=== PATIENT | male | born 1995 | race Caucasian/White ===

== ENCOUNTER 2023-09-17 10:46 | Outpatient (AMB) | payer BC, SELFPAY ==
--- NOTE | 2023-09-17 10:53 | A.OFFPC_ITS ---
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 clammy hands. Patient is transfering from [facility]- Dr. Camargo- medical records are scanned into chart. Manager Contracting Required: No Accompanied by: Self / Same As Patient Allergies No Known Allergies Allergy (Verified 09/17/23 11:39) Medication List - Last Reconciled 09/17/23 by CARMEN Hinkle No Known Home Meds Tobacco use date assessed: 09/17/23 Dental Screening Dental Screen Date: 09/17/23 Did you have a dental visit in the last 12 months?: Yes Did you have a dental problem in the last 6 months where you did not have access to dental care?: No Was dental information given to patient?: Patient has dentist HPI HPI Comments History of Present Illness Details 22-year-old male with hypertension, obes ity, benign heart murmur, chronic lumbar back pain with bilateral radiculopathy Surgical hx: Left wrist fx w/ repair Social history: [employer] - retired. Works at [employer]. Health maintenance Tdap 06/05/2022 Echocardiogram 12/25/2019 for heart murmur, no prolapse or abnormalities Specialists [facility] - MRI of lumbar spine without contrast done 04/26/2021: Unremarkable lumbar spine MRI, no evidence of nerve root impingement; treated with injections . Here today to est care CC: sweating a lot, occurs on hands, axilla; mild on forehead. All of the time. This started years ago; worse when in ; cont now even out of service. HTN - was on lisinopril in the past; has been off for 2 months. Monitoring at home. Reports WNL. [facility]al US was never done[facility]; will have eval for hearing and back pain PFSH Medical History (Updated 09/17/23 @ 11:53 by CARMEN Hinkle) Hypertension Surgical History (Updated 09/17/23 @ 11:17 by Ruby Irizarry CMA) History of surgery on left wrist Family History (Updated 09/17/23 @ 11:19 by Ruby Irizarry CMA) Father Hypertension Diabetes Pancreatic cancer Maternal Grandmother Diabetes Social History (Updated 09/17/23 @ 11:04 by Ruby Irizarry CMA) Household Members: Family Housing: House Are you a primary care navigator to a significant other at home: No Do you presently have visiting nurse or other home services: No Alcohol intake: current Alcohol intake frequency: a few times a week Alcohol type: beer Patient Tobacco Use Status: Never used Tobacco e-Cigarette/Vaping Use: Never Used service: Yes (R17) Current occupational status: employed Current occupation: [employer]- [place] Cognitive needs: No Hearing needs: Yes (see[facility]- tinnitus and hearing loss ) Vision needs: No Questionnaire PHQ-9 Over the last 2 weeks, how often have you been bothered by any of the following problems? 1. Little interest or pleasure in doing things: not at all 2. Feeling down, depressed, or hopeless: not at all 3. Trouble falling or staying asleep, or sleeping too much: not at all 4. Feeling tired or having little energy: not at all 5. Poor appetite or overeating: not at all 6. Feeling bad about yourself - or that you are a failure or have let yourself or your family down: not at all 7. Trouble concentrating on things, such as reading the newspaper or watching television: not at all 8. Moving or speaking so slowly that other people could have noticed. Or the opposite - being so fidgety or restless that you have been moving around a lot more than usual: not at all 9. Thoughts that you would be better off or of hurting yourself in some way: not at all Total score: 0 Depression Screening Interpretation: Negative Depression Screening Done: Yes 08343 - PHQ-9 Billing: Yes Source: Developed by Drs. Minor Ugalde, Courtney Alvarado, Dalton Carranza and colleagues, with an educational marshall from [employer]. Thrive Questionnaire Date Thrive assessed: 09/17/23 I am a: Patient What is your living situation today?: I have a steady place to live Within the past 12 months, did the food you bought not last and you didn't have the money to get more?: Never true Within the past 12 months, did you worry whether your food would run out before you got money to buy more?: Never true Do you have trouble paying for medicines?: No Do you have trouble getting transportation to medical appointments?: No Do you have trouble paying your heating and electricity bill?: No Do you have trouble taking care of your child, family member or friend?: No Do you have trouble with day-to-day activities such as bathing, preparing meals, shopping, managing finances, etc.?: No Are you currently unemployed and looking for a job?: No Are you interested in more education?: No Please select the resources that you would like help with: None Currently or been in a relationship where the following occur: no concerns reported THRIVE Score: 0 AUDIT C Alcohol Use Questionnaire (AUDIT-C) 1. How often do you have a drink containing alcohol?: 2-3 times a week 2. How many drinks containing alcohol do you have on a typical day when you are drinking?: 1 or 2 3. How often do you have six or more drinks on one occasion?: Never Total Score: 3 Score Reviewed/Action Taken: Yes TOD-7 AMB Questionnaire TOD-7 Date TOD - 7 assessed: 09/17/23 Feeling nervous, anxious, or on edge: 0 = Not at all Not being able to stop or control worryin = Not at all Worrying too much about different things: 0 = Not at all Trouble relaxin = Not at all Being so restless that it is hard to sit still: 0 = Not at all Becoming easily annoyed or irritable: 0 = Not at all Feeling afraid as if something awful might happen: 0 = Not at all Total TOD-7 score (0-4 normal; 5-9 mild; 10-14 moderate; 15-21 severe): 0 Source: Developed by Drs. Minor Ugalde, Courtney Alvarado, Dalton Carranza and colleagues, with an educational marshall from [employer]. TOD-7 Assessment Billing TOD-7 Assessment Tool: TOD-7 Assessment 08621 Review of Systems Const All systems reviewed & are unremarkable except as noted in HPI and below Physical exam (Primary Care) Vital Signs: Last Vital Signs Pulse 80 09/17/23 10:57 BP 120/66 09/17/23 10:57 Pulse Ox 96 09/17/23 10:57 Oxygen Delivery Method Room Air 09/17/23 10:57 BMI result Body Mass Index 30.5 BMI Assessment/Plan discussion: High BMI High, discussed plan: lifestyle Tobacco/Smoking Status: Tobacco use Status Tobacco use date assessed 09/17/23 09/17/23 11:03 Patient Tobacco Use Status Never used Tobacco 09/17/23 11:04 e-Cigarette/Vaping Use Never Used 09/17/23 11:04 PHQ-9: PHQ-9 Score PHQ-9: Total score 0 09/17/23 11:15 Depression Screening Interpretation: Negative Thrive Assessment: Date of Thrive Assessment Date Thrive assessed 09/17/23 09/17/23 11:06 Currently or been in a relationship where the following occur: no concerns reported Const Other: awake alert NAD MMM RRR, 1/6 systolic murmur LS CTAB + hydrosis noted in bilat axilla w/ stains on shirt & bilat palms Mood and affect appropriate Assessment and Plan Assessment & Plan (1) Hyperhidrosis: Comment: check labs today. If WNL discuss treatment options Tx any abnormal labs Code(s): R61 - Generalized hyperhidrosis (2) History of hypertension: Comment: noted in previous PCP records was on lisinopril 10mg He is now off and BP is at goal He monitors at home, reports < 130/80 Echo UTD 2020 WNL Renal US was ordered but never done (by previous PCP) I do not see an indication to restart or check renal US at this time. Elevated BP was during a time of pain in his back and taking high dose NSAIDS. He is off NSAIDs and while he has pain it is improved Will cont to monitor Code(s): Z86.79 - Personal history of other diseases of the circulatory system (3) Obesity (BMI 30.0-34.9): Comment: Life style mods Code(s): E66.9 - Obesity, unspecified Plan Total time spent caring for the patient today was 45 minutes. This includes time spent before the visit reviewing the chart, time spent during the visit, and time spent after the visit on documentation This note is constructed using voice recognition software. While every effort has been made to ensure accuracy in tree killer, still errors may have been included Sometimes, these errors may affect the content or meaning of the given sentence . Orders: Orders Comprehensive Met. Panel Today R61 - Generalized hyperhidrosis Hemoglobin A1c Today R61 - Generalized hyperhidrosis TSH reflex Free T4 Today R61 - Generalized hyperhidrosis LDL Cholesterol Direct Today R61 - Generalized hyperhidrosis Microalbumin, Random (w Creat) Today R61 - Generalized hyperhidrosis Vitamin D 1,25 dihydroxy Today R61 - Generalized hyperhidrosis Patient Instructions: PLEASE SIGN UP FOR PATIENT PORTAL RTO IN 1-2 WEEKS TO F/U ON LABS RESULTS AND DISCUSS TX PLAN FOR SWEATING. Coding Level of Care Code New Pt Level 4 (32270) Diagnoses Hyperhidrosis R61 History of hypertension Z86.79 Obesity (BMI 30.0-34.9) E66.9 Additional Codes TOD-7 Assessment Billing - TOD-7 Assessment Tool: TOD-7 Assessment 45090 ([id number])
[2023-09-17 10:57] VITALS: BP 120/66; PULSE 80; O2SAT 96; BMI 30.5
== END 2023-09-17 11:49 | disposition home or self-care (01) ==
PROVIDERS: PCP Nurse Practitioner Family; Visit Provider Nurse Practitioner Family
DX: R61 Generalized hyperhidrosis (principal); Z86.79 Personal history of other diseases of the circulatory system; E66.9 Obesity, unspecified; Z68.30 Body mass index [BMI] 30.0-30.9, adult
CPT/HCPCS: 99204

== ENCOUNTER 2023-09-17 11:52 | Outpatient (REF) | payer BC, SELFPAY ==
[2023-09-17 15:10] LABS: Alanine Aminotransferase 39 U/L (0-40); Alkaline Phosphatase 49 U/L (39-117); Anion Gap 12 (12-20); Aspartate Amino Transferase 28 U/L (5-37); Bilirubin Total 0.7 mg/dL (0.0-1.0); Blood Urea Nitrogen 14 mg/dL (9-16); Calcium 9.9 mg/dL (8.4-10.2); Carbon Dioxide 29 mmol/L (22-29); Chloride 104 mmol/L (96-108); Estimated Glomerular Filt Rate > 60; Glucose Random 92 mg/dL (60-115); Potassium 4.2 mmol/L (3.3-5.1); Sodium 141 mmol/L (135-145); TSH reflex Free T4 1.44 uIU/mL (0.32-4.0); Total Protein 8.2 g/dL (6.5-8.0)
[2023-09-17 16:06] LABS: Estimated Average Glucose 111 mg/dL; Hemoglobin A1c % 5.5 % (<6.0)
[2023-09-17 16:10] LABS: Creatinine Urine 94.41 mg/dL; Microalbum/Creatinine Ratio Ur 6.3 ug/mg cr (<30)
[2023-09-18 14:39] LABS: LDL Cholesterol Direct 146 mg/dL (<100)
[2023-09-22 00:14] LABS: VITAMIN D (1,25 OH) D3 69 pg/mL; Vit D (1,25-Dihydroxy) Total 69 pg/mL (18-72); Vitamin D (1,25 OH) D2 <8 pg/mL
== END 2023-09-17 11:53 | disposition home or self-care (01) ==
LOC: HO.WFDLDS 11:52
PROVIDERS: Visit Provider Nurse Practitioner Family
DX: R61 Generalized hyperhidrosis (principal)
CPT/HCPCS: 36415; 80053; 82043; 82570; 82652; 83036; 83721; 84443

== ENCOUNTER 2023-10-09 08:13 | Outpatient (AMB) | payer BC, SELFPAY ==
--- NOTE | 2023-10-09 08:15 | A.OFFPC_ITS ---
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 Required: No Allergies No Known Allergies Allergy (Verified 10/09/23 08:18) Medication List - Last Reconciled 10/09/23 by CARMEN Hinkle No Known Home Meds Tobacco use date assessed: 09/17/23 Dental Screening Dental Screen Date: 09/17/23 HPI HPI Comments History of Present Illness Details 28-year-old male with hypertension, obes ity, benign heart murmur, chronic lumbar back pain with bilateral radiculopathy Surgical hx: Left wrist fx w/ repair 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 Here side of follow up on labs and discuss treatment for hyperhidrosis. 09/17/2023 normal CMP, TSH, normal hemog lobin A1c of 5.5%, normal here in microalbumin creatinine ratio, LDL 146, Vit d WNL His blood pressure was elevated upon initial intake using the automatic blood pressure cuff. Recheck shows a normal blood pressure. He continues to have back pain. He has not taken any NSAIDs today. He complains photosensitivity to bilat eyes present for several years. Last eye exam 2017. Denies constitutional symptoms related to this [facility] Medical History (Updated 10/09/23 @ 08:58 by LIBAN Hinkle-SUNITA) Hypertension Surgical History (Updated 09/17/23 @ 11:17 by Ruby Irizarry [facility]) History of surgery on left wrist Family History (Updated 09/17/23 @ 11:19 by Ruby Irizarry CMA) Father Hypertension Diabetes Pancreatic cancer Maternal Grandmother Diabetes Social History (Updated 09/17/23 @ 11:04 by Ruby Irizarry CMA) Household Members: Family Both parents involved: No Caregiver staying overnight: No Housing: House Are you a primary animal caregiver to a significant other at home: No Do you presently have visiting nurse or other home services: No 75 years or older and lives alone: No Alcohol intake: current Alcohol intake frequency: a few times a week Alcohol type: beer Patient Tobacco Use Status: Never used Tobacco e-Cigarette/Vaping Use: Never Used service: Yes ([employer]) Current occupational status: employed 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 Minor Ugalde, Courtney Alvarado, Dalton Carranza and colleagues, with an educational marshall from [employer]. Review of Systems Const All systems reviewed & are unremarkable except as noted in HPI and below Physical exam (Primary Care) Vital Signs: Last Vital Signs Temp 97.7 F 10/09/23 08:17 Pulse 50 10/09/23 08:17 Resp 16 10/09/23 08:17 BP 144/84 H 10/09/23 08:24 Pulse Ox 98 10/09/23 08:17 Oxygen Delivery Method Room Air 10/09/23 08:17 BMI result Body Mass Index 29.9 Tobacco/Smoking Status: Tobacco use Status Tobacco use date assessed 09/17/23 10/09/23 08:17 Patient Tobacco Use Status Never used Tobacco 10/09/23 08:17 e-Cigarette/Vaping Use Never Used 10/09/23 08:17 Thrive Assessment: Date of Thrive Assessment Date Thrive assessed 09/17/23 10/09/23 08:17 Const Other: awake alert NAD MMM RRR, 1/6 systolic murmur LS CTAB + hydrosis noted in bilat axilla w/ stains on shirt & bilat palms Mood and affect appropriate Assessment and Plan Assessment & Plan (1) Photosensitivity: Comment: Refer to ophthalmology Code(s): L56.8 - Other specified acute skin changes due to ultraviolet radiation (2) Hyperhidrosis: Comment: Labs within normal limits. Start Drysol 20% solution as directed. Advised a side effect of skin irritation and how to combat this. If this does not work I have asked for him to notify me and at that time we can refer to Dermatology for treatment such as Botox. Code(s): R61 - Generalized hyperhidrosis (3) Chronic back pain: Comment: Present for years. Taking NSAIDs to treat. Advised against taking NSAIDs due to the elevated blood pressure when he does take this. Advised to take a 1000 mg of Tylenol 3 times a day, not to exceed this dose. Take at least 2000 mg per day every day given the chronicity of his back pain. [facility] and [facility]. Code(s): M54.9 - Dorsalgia, unspecified; G89.29 - Other chronic pain Qualifiers: Back pain location: low back pain Back pain laterality: midline Sciatica presence: without sciatica Qualified Code(s): M54.50 - Low back pain, unspecified; G89.29 - Other chronic pain Plan This note is constructed using voice recognition software. While every effort has been made to ensure accuracy in pain coordinator, still errors may have been included Sometimes, these errors may affect the content or meaning of the given sentence . Total time spent caring for the patient today was 30 minutes. This includes time spent before the visit reviewing the chart, time spent during the visit, and time spent after the visit on documentation Orders: Referrals Ophthalmology Referral L56.8 - Other specified acute skin changes due to ultraviolet radiation Medications: New aluminum chloride 20% 1 appl topical BEDTIME 3 days 60 mL 5RF Patient Instructions: [facility] [place] [address] [place] [address] Please call and schedule appt . Try taking Tylenol 1000mg three times per day, avoid NSAID (Aleve, Motrin, etc). Return to office in the fall for a complete physical exam, sooner as needed. Coding Level of Care Code Est Pt Level 4 (00497) Diagnoses Photosensitivity L56.8 Hyperhidrosis R61 Chronic midline low back pain without sciatica M54.50; G89.29 Back pain location: low back pain Back pain laterality: midline Sciatica presence: without sciatica
[2023-10-09 08:17] VITALS: BP 150/90; PULSE 50; RESP 16; TEMP 36.5; O2SAT 98; BMI 29.9
[2023-10-09 08:24] VITALS: BP 144/84
[2023-10-09 08:48] VITALS: BP 128/78
== END 2023-10-09 09:04 | disposition home or self-care (01) ==
PROVIDERS: PCP Nurse Practitioner Family; Visit Provider Nurse Practitioner Family
DX: L56.8 Other specified acute skin changes due to ultraviolet radiation (principal); R61 Generalized hyperhidrosis; M54.50 Low back pain, unspecified; G89.29 Other chronic pain
CPT/HCPCS: 99214

== ENCOUNTER 2024-03-28 08:11 | Outpatient (AMB) | payer BC, SELFPAY ==
--- NOTE | 2024-03-28 07:28 | MHC.PC.OV ---
Vital Signs 03/28/24 08:16 03/28/24 11:48 Height 6 ft Weight 230 lb 8 oz BMI 31.3 BP 154/82 H 158/88 H Blood Pressure Location Lt brachial Rt brachial Position Sitting Sitting Respiration 15 Pulse 100 Pulse Source Pulse Oximeter Pulse Oximetry (%) 99 Oxygen Delivery Method Room Air Intake Visit Reasons: Fall for CPE with me Intake Note: annual physical Allergies No Known Allergies Allergy (Verified 03/28/24 08:45) Medication List - Last Reconciled 03/28/24 by LIBAN [facility] Tobacco use date assessed: 03/28/24 Dental Screening Dental Screen Date: 03/28/24 Did you have a dental visit in the last 12 months?: No Did you have a dental problem in the last 6 months where you did not have access to dental care?: No Was dental information given to patient?: Patient has dentist HPI HPI Comments History of Present Illness Details 29-year-old male with hypertension, obesity, benign heart murmur, chronic lumbar back pain with bilateral radiculopathy, hyperhydrosis Family hx: as below, no changes Surgical hx: Left wrist fx w/ repair Social history: [employer] 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 Specialists [facility] - MRI of lumbar spine without contrast done 04/26/2021: Unremarkable lumbar spine MRI, no evidence of nerve root impingement; treated with injections . Optho Here today for CPE Drysol did not work. Interested in Derm referral Optho - cont w/ photophobia. did not schedule eye exam, too busy, will work on that. Mood is feeling stressed. Not sleeping as a result. Can fall asleep but not stay sleep. High level of anxiety. Denies SI/HI. Denies negative coping like etoh or drugs. + support system. Looking for another job Appetite: eat when i can d/t schedule. Some times its take out. Some times only eats once per day Not exercising like he used to d/t time. Plan Check BP and P at home daily for 2 weeks. Goal is <140 DBP< 90 Send me the log via the portal Also let me know how the trazodone is working for insomnia and anxiety. Can adjust and titrate to effect Derm referral Schedule Eye exam Repeat screening labs today. RTO 1 year, CPE, sooner PRN PFSH Medical History (Updated 03/28/24 @ 11:49 by Tiffany Kowalski [facility]) Hypertension Surgical History (Updated 09/17/23 @ 11:17 by Ruby Irizarry CMA) History of surgery on left wrist Family History (Updated 09/17/23 @ 11:19 by Ruby Irizarry CMA) Father Hypertension Diabetes Pancreatic cancer Maternal Grandmother Diabetes Social History (Updated 09/17/23 @ 11:04 by Ruby Irizarry CMA) Household Members: Family Both parents involved: No Caregiver staying overnight: No Housing: House Are you a primary direct care professional to a significant other at home: No Do you presently have visiting nurse or other home services: No 75 years or older and lives alone: No Alcohol intake: current Alcohol intake frequency: a few times a week Alcohol type: beer Patient Tobacco Use Status: Never used Tobacco e-Cigarette/Vaping Use: Never Used service: Yes ([employer]) Current occupational status: employed 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 34584 - PHQ-9 Billing: Patient declined-do not bill Source: Developed by Drs. Minor Ugalde, Courtney Alvarado, Dalton Carranza and colleagues, with an educational marshall from [employer]. Thrive Questionnaire Date Thrive assessed: 03/28/24 I am a: Patient What is your living situation today?: I have a steady place to live Within the past 12 months, did the food you bought not last and you didn't have the money to get more?: Never true Within the past 12 months, did you worry whether your food would run out before you got money to buy more?: Never true Do you have trouble paying for medicines?: No Do you have trouble getting transportation to medical appointments?: No Do you have trouble paying your heating and electricity bill?: No Do you have trouble taking care of your child, family member or friend?: No Do you have trouble with day-to-day activities such as bathing, preparing meals, shopping, managing finances, etc.?: No Are you currently unemployed and looking for a job?: No Are you interested in more education?: I choose not to answer this question Please select the resources that you would like help with: None THRIVE Score: 0 AUDIT C Alcohol Use Questionnaire (AUDIT-C) 1. How often do you have a drink containing alcohol?: 2-4 times a month 2. How many drinks containing alcohol do you have on a typical day when you are drinking?: 3 or 4 3. How often do you have six or more drinks on one occasion?: Less than monthly Total Score: 4 TOD-7 AMB Questionnaire TOD-7 Date TOD - 7 assessed: 03/28/24 Feeling nervous, anxious, or on edge: 3 = Nearly every day Not being able to stop or control worryin = Nearly every day Worrying too much about different things: 3 = Nearly every day Trouble relaxin = Nearly every day Being so restless that it is hard to sit still: 3 = Nearly every day Becoming easily annoyed or irritable: 3 = Nearly every day Feeling afraid as if something awful might happen: 0 = Not at all Total TOD-7 score (0-4 normal; 5-9 mild; 10-14 moderate; 15-21 severe): 18 Source: Developed by Drs. Minor Ugalde, Courtney Alvarado, Dalton Carranza and colleagues, with an educational marshall from [employer]. TOD-7 Assessment Billing TOD-7 Assessment Tool: TOD-7 Assessment 69954 Physical exam (Primary Care) Vital Signs: Last Vital Signs Pulse 100 03/28/24 08:16 Resp 15 03/28/24 08:16 BP 154/82 H 03/28/24 08:16 Pulse Ox 99 03/28/24 08:16 Oxygen Delivery Method Room Air 03/28/24 08:16 BMI result Body Mass Index 31.3 Tobacco/Smoking Status: Tobacco use Status Tobacco use date assessed 03/28/24 03/28/24 08:18 Patient Tobacco Use Status Never used Tobacco 03/28/24 07:28 e-Cigarette/Vaping Use Never Used 03/28/24 07:28 Thrive Assessment: Date of Thrive Assessment Date Thrive assessed 03/28/24 03/28/24 08:18 Const Other: awake alert NAD PERRLA, EOMI TM intact and clear bilat Nares WNL Neck FROM, no thyromegaly MMM RRR, 1/6 systolic murmur LS CTAB Abd soft, nontender, normoactive bs x 4 CUEVAS x 4, normal pulses Skin intact + hydrosis noted in bilat axilla w/ stains on shirt & bilat palms Mood and affect appropriate Coding Level of Care Code Est Pt Prev Care 18-39y(72095) Diagnoses Encounter for general adult medical examination without abnormal findings Z00.00 Hyperhidrosis R61 History of hypertension Z86.79 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 (3) History of hypertension: Comment: noted in previous PCP records was on lisinopril 10mg He is now off and BP is at goal He monitors at home, reports < 130/80 Echo UTD 2020 WNL Renal US was ordered but never done (by previous PCP) I do not see an indication to restart or check renal US at this time. Elevated BP was during a time of pain in his back and taking high dose NSAIDS. He is off NSAIDs and while he has pain it is improved BP elevated again today. See plan above Code(s): Z86.79 - Personal history of other diseases of the circulatory system Category: Medical Plan: . (4) Insomnia secondary to anxiety: Code(s): F41.9 - Anxiety disorder, unspecified; F51.05 - Insomnia due to other mental disorder Category: Medical (5) Obesity (BMI 30.0-34.9): Comment: Life style mods Code(s): E66.9 - Obesity, unspecified Category: Medical (6) Photosensitivity: Comment: Refer to ophthalmology Code(s): L56.8 - Other specified acute skin changes due to ultraviolet radiation Category: Medical Plan . Orders: Orders Lipid Panel Today R61 - Generalized hyperhidrosis, Z00.00 - Encounter for general adult medical examination without abnormal findings Comprehensive [place]. Panel Fast Today R61 - Generalized hyperhidrosis, Z00.00 - Encounter for general adult medical examination without abnormal findings Referrals Dermatology Referral R61 - Generalized hyperhidrosis Medications: New trazodone take 1/2 to 1 tab 30 min before bed as needed for sleep 50 mg PO BEDTIME PRN 30 tabs 2RF sleep
[2024-03-28 08:16] VITALS: BP 154/82; PULSE 100; RESP 15; O2SAT 99; BMI 31.3
[2024-03-28 11:48] VITALS: BP 158/88
== END 2024-03-28 09:06 | disposition home or self-care (01) ==
PROVIDERS: PCP Nurse Practitioner Family; Visit Provider Nurse Practitioner Family
DX: Z00.00 Encounter for general adult medical examination without abnormal findings (principal); R61 Generalized hyperhidrosis; Z86.79 Personal history of other diseases of the circulatory system; Z68.31 Body mass index [BMI] 31.0-31.9, adult; E66.9 Obesity, unspecified; F41.9 Anxiety disorder, unspecified; F51.05 Insomnia due to other mental disorder; L56.8 Other specified acute skin changes due to ultraviolet radiation

== ENCOUNTER → 2024-03-28 08:11 | Outpatient (BNVA) | payer BC, SELFPAY | PROVIDERS: PCP Nurse Practitioner Family; Visit Provider Nurse Practitioner Family | DX: Z00.00 Encounter for general adult medical examination without abnormal findings (principal); R61 Generalized hyperhidrosis; F41.9 Anxiety disorder, unspecified; F51.05 Insomnia due to other mental disorder; L56.8 Other specified acute skin changes due to ultraviolet radiation; E66.9 Obesity, unspecified; Z68.31 Body mass index [BMI] 31.0-31.9, adult; Z86.79 Personal history of other diseases of the circulatory system | CPT/HCPCS: 96127 ==

== ENCOUNTER 2024-04-21 10:39 | Outpatient (REF) | payer BC, SELFPAY ==
[2024-04-21 14:39] LABS: Alanine Aminotransferase 56 U/L (0-40); Albumin Level 4.7 g/dL (3.5-5.0); Alkaline Phosphatase 46 U/L (39-117); Anion Gap 11 (12-20); Aspartate Amino Transferase 39 U/L (5-37); Bilirubin Total 0.5 mg/dL (0.0-1.0); Blood Urea Nitrogen 13 mg/dL (9-16); Calcium 10.5 mg/dL (8.4-10.2); Carbon Dioxide 29 mmol/L (22-29); Chloride 102 mmol/L (96-108); Cholesterol 208 mg/dL (<200); Estimated Glomerular Filt Rate > 60; Glucose Fasting 98 mg/dL (60-99); HDL Cholesterol 46 mg/dL (>40); LDL Cholesterol Calculated 130 mg/dL (<100); Sodium 138 mmol/L (135-145); Total Protein 7.6 g/dL (6.5-8.0); Triglycerides 160 mg/dL (<150)
== END 2024-04-21 10:40 | disposition home or self-care (01) ==
LOC: HO.WFDLDS 10:39
PROVIDERS: Visit Provider Nurse Practitioner Family
DX: Z00.00 Encounter for general adult medical examination without abnormal findings (principal); R61 Generalized hyperhidrosis
CPT/HCPCS: 36415; 80053; 80061

== ENCOUNTER 2024-05-04 11:05 | Outpatient (AMB) | payer BC, SELFPAY ==
--- NOTE | 2024-05-04 11:21 | MHC.PC.OV ---
Vital Signs 05/04/24 11:25 Height 6 ft Weight 229 lb BMI 31.1 BP 145/91 H Blood Pressure Location Rt brachial Position Sitting Respiration 14 Pulse 63 Pulse Source Pulse Oximeter Pulse Oximetry (%) 99 Oxygen Delivery Method Room Air Intake Visit Reasons: DISCHARGE/ BACK SPASM UNABLE TO WALK Intake Note: follow up on discharge from ER for back spasm and painful when walking x3 days Net Developer Architect Required: No Allergies No Known Allergies Allergy (Verified 05/04/24 11:24) Medication List - Last Reconciled 05/04/24 by Tiffany Kowalski, ASSIST[employer]CH[employer]- cyclobenzaprine 10 mg PO TID methylprednisolone 4 mg PO DAILY trazodone 50 mg PO BEDTIME PRN Tobacco use date assessed: 03/28/24 Dental Screening Dental Screen Date: 03/28/24 HPI HPI Comments History of Present Illness Details 29-year-old male with hypertension, obesity, benign heart murmur, chronic lumbar back pain with bilateral radiculopathy, hyperhydrosis Surgical hx: Left wrist fx w/ repair Social history: [employer] Health maintenance Tdap 06/05/2022 Echocardiogram 12/25/2019 12 for heart murmur, no prolapse or abnormalities Renal ultrasound ordered July of 2022 * no results Specialists [facility] - MRI of lumbar spine without contrast done 04/26/2021: Unremarkable lumbar spine MRI, no evidence of nerve root impingement; treated with injections . Optho History of Present Illness Here today for hospital discharge follow up. Was seen at [facility] on 05/01/2024 for acute on chronic lumbar back pain. The pain began on the afternoon of May 01, when the patient bent over to grab laundry. Immediately following this action, he experienced a shooting pain running directly down the middle of his back, resulting in a loss of leg stability. The patient was unable to stand or move for 1 hour, he did require assistance from his mother to get up and required assistance to reach the emergency department (ED) on the same day. Diagnostic imaging at the ED included a CT scan, which showed no lumbar spine fracture or other acute abnormalities. Comparisons were made with an MRI from April 2021, confirming the absence of any new acute pathology. The patient was prescribed a Medrol dose pack and cyclobenzaprine for pain management. He noted some improvement, but continues to experience limitation in bending and describes his lower waist as feeling like a rubber band, with unpredictable leg stability. He denies any saddle paresthesia, loss of bowel or bladder function. Physical Exam General: Awake, alert. No apparent distress PERRLA, EOMI, Neck FROM Spinal tenderness starting at lower thoracic level extending through sacrum, mild tenderness paraspinally in lower back region. + SLR bilat R>L Normal strength, tone, reflexes Gaurded movement/position change d/t pain Results - CT Scan: No lumbar spine fracture; no acute abnormalities. Compared with prior MRI from April 2021. Plan - Acute Lumbar Back Pain: Request approval for an updated MRI to evaluate current spinal condition. Referral to [facility] spine group for specialist assessment once imaging is available. - Prescribe work restrictions: No prolonged sitting, standing, bending, squatting, or lifting over 5 pounds. Monitor symptoms closely and adjust restrictions as needed. - Continue current medications: Extend prescription for Medrol dose pack and cyclobenzaprine to control pain and inflammation until MRI results are available. Patient was informed and verbally consented to the use of an ambient scribe for clinic note documentation during this visit. Discussion Notes During our discussion, the patient expressed concern regarding his ability to continue working safely. I recommended extending his medication regimen, as current prescriptions demonstrate partial efficacy in managing symptoms. I outlined the potential need for an updated MRI to gain insight into his spinal condition and explained that pending MRI results will guide any further intervention or referral to a counterintelligence specialist. We discussed the importance of work restrictions and their role in preventing further injury. The patient agreed to these plans, understanding the necessity of rest and avoidance of strenuous activity. Patient Instructions - Adhere to prescribed work restrictions: Avoid prolonged sitting, standing, bending, squatting, and lifting over 5 pounds. - Continue Medrol dose pack and cyclobenzaprine as prescribed. - Monitor symptoms and contact the clinic if there is a significant increase in pain or any new symptoms. - Await contact from the MRI department for scheduling. - Follow up with specialist as referred once MRI results are available. - Use provided pharmacy, [facility] in [place], for medication refills. FU with provider once MRI results are back and for return to work clearance This note is constructed using voice recognition software. 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 Total time spent caring for the patient today was 45 minutes. This includes time spent before the visit reviewing the chart, time spent during the visit, and time spent after the visit on documentation [facility] Medical History (Updated 05/04/24 @ 12:12 by Tiffany Kowalski [facility]) Hypertension Surgical History (Updated 09/17/23 @ 11:17 by Ruby Irizarry CMA) History of surgery on left wrist Family History (Updated 09/17/23 @ 11:19 by Ruby Irizarry CMA) Father Hypertension Diabetes Pancreatic cancer Maternal Grandmother Diabetes Social History (Updated 09/17/23 @ 11:04 by Ruby Irizarry CMA) Household Members: Family Both parents involved: No Caregiver staying overnight: No Housing: House Are you a primary patient care nursing assistant to a significant other at home: No Do you presently have visiting nurse or other home services: No 75 years or older and lives alone: No Alcohol intake: current Alcohol intake frequency: a few times a week Alcohol type: beer Patient Tobacco Use Status: Never used Tobacco e-Cigarette/Vaping Use: Never Used service: Yes ([employer]) Current occupational status: employed 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 07456 - PHQ-9 Billing: Patient declined-do not bill Source: Developed by Drs. Minor Ugalde, Courtney Alvarado, Dalton Carranza and colleagues, with an educational marshall from [employer]. Thrive Questionnaire Date Thrive assessed: 05/04/24 I am a: Patient What is your living situation today?: I have a steady place to live Within the past 12 months, did the food you bought not last and you didn't have the money to get more?: Never true Within the past 12 months, did you worry whether your food would run out before you got money to buy more?: Never true Do you have trouble paying for medicines?: No Do you have trouble getting transportation to medical appointments?: No Do you have trouble paying your heating and electricity bill?: No Do you have trouble taking care of your child, family member or friend?: No Do you have trouble with day-to-day activities such as bathing, preparing meals, shopping, managing finances, etc.?: No Are you currently unemployed and looking for a job?: No Are you interested in more education?: I choose not to answer this question Please select the resources that you would like help with: None Currently or been in a relationship where the following occur: No concerns reported THRIVE Score: 0 TOD-7 AMB Questionnaire TOD-7 Date TOD - 7 assessed: 03/28/24 Source: Developed by Drs. Minor Ugalde, Courtney Alvarado, Dalton Carranza and colleagues, with an educational marshall from [employer]. Physical exam (Primary Care) Vital Signs: Last Vital Signs Pulse 63 05/04/24 11:25 Resp 14 05/04/24 11:25 BP 145/91 H 05/04/24 11:25 Pulse Ox 99 05/04/24 11:25 Oxygen Delivery Method Room Air 05/04/24 11:25 BMI result Body Mass Index 31.1 Tobacco/Smoking Status: Tobacco use Status Tobacco use date assessed 03/28/24 05/04/24 11:27 Patient Tobacco Use Status Never used Tobacco 05/04/24 11:27 e-Cigarette/Vaping Use Never Used 05/04/24 11:27 Thrive Assessment: Date of Thrive Assessment Date Thrive assessed 05/04/24 05/04/24 11:27 Currently or been in a relationship where the following occur: No concerns reported Coding Level of Care Code Est Pt Level 5 (98553) Complex EM visit Add On G2211 Diagnoses Hospital discharge follow-up Z09 Low back pain radiating to both legs M54.50; M79.604; M79.605 Assessment & Plan Assessment & Plan (1) Hospital discharge follow-up: Code(s): Z09 - Encounter for follow-up examination after completed treatment for conditions other than malignant neoplasm Category: Medical (2) Low back pain radiating to both legs: Code(s): M54.50 - Low back pain, unspecified; M79.604 - Pain in right leg; M79.605 - Pain in left leg Category: Medical Plan . Orders: Orders MR lumbar spine wo con Today M54.50 - Low back pain, unspecified, M79.604 - Pain in right leg, M79.605 - Pain in left leg Referrals Neuro Spine Referral M54.50 - Low back pain, unspecified, M79.604 - Pain in right leg, M79.605 - Pain in left leg Medications: New methylprednisolone (Medrol (Jony)) PO PER PKG DIR 21 ea 0RF cyclobenzaprine 10 mg PO TID 15 tabs 0RF
[2024-05-04 11:25] VITALS: BP 145/91; PULSE 63; RESP 14; O2SAT 99; BMI 31.1
--- OUTSIDE RECORDS SUMMARY | 2024-05-10 18:00 | XMS_ITS | Continuity of Care Document ---
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 Harrington Primary Care Physician [facility] [id number] Date(s): 05/01/24 - 05/01/[address] [address]- Discharge Disposition: A-D/C Home Attending Physician: Williams Eaton DO Admitting Physician: Williams Eaton DO Referring Physician: Not on Staff, Referring MD Encounter Type: Disch ES Allergies, Adverse Reactions, Alerts No Known Allergies Immunizations Given and Recorded Vaccine Date Status Refusal Reason tetanus/diphtheria/pertussis, acel(Tdap) 06/05/22 Recorded tetanus/diphtheria/pertussis, acel(Tdap) 02/15/16 Recorded tetanus/diphtheria/pertussis, acel(Tdap) 12/06/07 Given SARS-CoV-2 (COVID-19) mRNA BNT-162b2 vac 03/01/21 Recorded influenza virus vaccine, inactivated 02/18/21 Cam rded Hepatitis B Vaccine (old term) 09/01/16 Recorded Hepatitis B Vaccine (old term) 03/31/16 Recorded Hepatitis B Vaccine (old term) 02/20/16 Recorded Hepatitis B Vaccine (old term) 96 Given Hepatitis B Vaccine (old term) 96 Given Hepatitis B Vaccine (old term) 96 Given Hepatitis A Pediatric Vaccine 1 12/10/12 Given Hepatitis A Pediatric Vaccine 2 12/18/11 Given Meningococcal Conjugate Vaccine 3 12/10/12 Given Meningococcal Conjugate Vaccine 12/06/07 Given Human Papillomavirus Vaccine 4 07/31/12 Given Human Papillomavirus Vaccine 5 03/06/12 Given Human Papillomavirus Vaccine 6 12/18/11 Given Varicella Virus Vaccine 7 01/17/09 Given Varicella Virus Vaccine 03/20/97 Given Measles/Mumps/Rubella Virus Vaccine 04/14/01 Given Measles/Mumps/Rubella Virus Vaccine 03/20/97 Given Poliovirus Vaccine, Inactivated 04/14/01 Given diphtheria/tetanus/pertussis, acel(DTaP) 04/14/01 Given diphtheria/tetanus/pertussis, acel(DTaP) 06/17/97 Given diphtheria/tetanus/pertussis, acel(DTaP) 96 Given diphtheria/tetanus/pertussis, acel(DTaP) 96 Given diphtheria/tetanus/pertussis, acel(DTaP) 96 Given Haemophilus B conjugate (HbOC) vaccine 06/17/97 Gi donald Haemophilus B conjugate (HbOC) vaccine 96 Gi donald Haemophilus B conjugate (HbOC) vaccine 96 Gi donald Haemophilus B conjugate (HbOC) vaccine 96 Gi donald Polio Vaccine, Live (oldterm) 96 Given Polio Vaccine, Live (oldterm) 96 Given Polio Vaccine, Live (oldterm) 96 Given 1Result Comment: [12/10/2012] RICARDO CERVANTES MD 2Admin Note: VIS DATE: 03/25/2011 VIS GIVEN: 12/18/2011 3Result Comment: [12/10/2012] RICARDO CERVANTES MD 4Admin Note: VIS DATE: 03/25/2011 VIS GIVEN: 07/31/2012 5Admin Note: VIS 08/28/2009 6Admin Note: VIS DATE 07/21/11 VIS GIVEN 12/18/11 7Admin Note: VIS (08/12/07) given Medications cyclobenzaprine 10 mg oral tablet 10 mg, 1, tablet, By Mouth, 3 times a day, for 5 days, # 15 tablet, Refills 0, Tot. Refills 0, Acute 05/06/24 6:12:00 PM EST, 05/01/24 6:12:00 PM EST, Route to Pharmacy Electronically, [facility] #[id number], Partial fill upon patient request if the prescription is for a schedule II opioid drug., 182, cm, 05/01/24 18:04:00 EST, Height, 100, kg, 05/01/24 18:04:00 EST, Dry Weight Start Date: 05/01/24 Stop Date: 05/06/24 Status: Ordered Quantity: 15.0 Unit: tablet Repeat number: 1 lisinopril 10 mg oral tablet 10 mg, 1, tablet, By Mouth, Daily, # 90 tablet, Refills 3, Tot. Refills 3, Maintenance, 09/15/22 4:14:00 PM EDT, Route to Pharmacy Electronically, [facility] #[id number], Partial fill upon patient request if the prescription is for a schedule II opioid drug., 182, cm, 09/15/22 14:58:00 EDT, Height Start Date: 09/15/22 Status: Ordered Quantity: 90.0 Unit: tablet Repeat number: 4 Indication: Essential (primary) hypertension Medrol Dosepak 4 mg oral tablet 1 pack/packet, By Mouth, Daily, for 6 days, as directed on package labeling, # 21 tablet, 5 Refills, Acute 06/06/24 6:13:00 PM EST, 05/01/24 6:13:00 PM EST, Tablet, [facility] #[id number], Partial fill upon patient request if the prescription is for a schedule II opioid drug., 182, cm, 05/01/24 18:04:00 EST, Height, 100, kg, 05/01/24 18:04:00 EST, Dry Weight Start Date: 05/01/24 Stop Date: 06/06/24 Status: Ordered Quantity: 21.0 Unit: tablet Repeat number: 6 Problem List Condition Confirmation Course Effective Dates Status Health atus Informant Healthy child Confirmed Active Innocent heart murmur 1 Confirmed Active Lower back pain Confirmed Active Obese class I Confirmed Active 1Cardiology Note 12/25/11 - Innocent/Benign/No SBE prophylaxis. Results Radiology Reports * Exam Date Time Procedure Performing Provider Status 05/01/24 4:[address] Lumbar Spine W/O Contrast Angelica Hamilton; Sujatha (Verified) Notes: (CT Lumbar Spine W/O Contrast) Reason For Exam: Spine fracture, lumbar, traumatic;Other: RESULT: CT Lumbar Spine W/O Contrast CT Lumbar Spine W/O Contrast Hx of Present Illness: significant lower back pain, no numbness tingling; Reason: Spine fracture, lumbar, traumatic; Clinical Question(s): Fracture Dislocation CLINICAL QUESTION: Fracture/Dislocation TECHNIQUE: Thin section axial images were acquired through the lumbar spine. Bone and soft tissue algorithms were reconstructed along with coronal and sagittal reformats. Weight-based protocol using automatic tube modulation was used to optimize exposure parameters. CTDIvol Body: 24.18 mGy, DLP Body: 747 mGy*cm. COMPARISON: MRI lumbar 04/26/2021 FINDINGS: Sap Bw Consultant View Findings, Lines and Tubes: None. Spine: No fractures or bone lesion. 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 Normal alignment. The intervertebral disc spaces are preserved. Soft tissues: No acute abnormality in the paravertebral soft tissues. Visualized aorta and kidneys appear unremarkable. IMPRESSION: No lumbar spine fracture or subluxation. I have personally reviewed the images and I agree with this report. WSN: [id number] Ordering Physician: Williams Eaton Dictated By: Blayne Hurt MD Dictated Date/Time: 05/01/24 5:44 pm Reviewed By: Forrest Luna MD Signed By: Forrest Luna MD Signed Date/Time: 05/01/24 5:49 pm Transcribed By: PITO Transcribed Date/Time: 05/01/24 5:37 pm Vital Signs Most recent to oldest [Reference Range]: 1 2 Height 182 cm (05/01/24 6:04 PM) 182 cm (05/01/24 4:10 PM) Weight 100 kg (05/01/24 6:04 PM) 100 kg (05/01/24 4:10 PM) Oxygen Saturation [94-100 %] 95 % (05/01/24 6:04 PM) 98 % (05/01/24 4:11 PM) Pulse Rate [55-90 bpm] 66 bpm (05/01/24 6:04 PM) 76 bpm (05/01/24 4:11 PM) Body Mass Index [18.5-24.99 kg/m2] 30.19 kg/m2 *>HHI* (05/01/24 6:04 PM) Blood Pressure [90-138/55-84 mm Hg] 168/ 100mm Hg *H* (05/01/24 6:04 PM) 162/98mm Hg *H* (05/01/24 4:11 PM) Respiratory Rate [16-30 br/min] 18 br/mi n (05/01/24 6:04 PM) Temperature [96.8-100.4 DegF] 98.1 DegF (05/01/24 6:04 PM) 98.1 DegF (05/01/24 4:11 PM) Mode of Delivery (Oxygen) Room air (05/01/24 6:04 PM) Room air (05/01/24 4:11 PM) Blood pressure sites Arm, left (05/01/24 6:04 PM) Arm, left (05/01/24 4:11 PM) Temperature Route Oral (05/01/24 6:04 PM) Oral (05/01/24 4:11 PM) Dry Weight 100 kg (05/01/24 6:04 PM) 100 kg (05/01/24 4:10 PM) Social History Social History Type Response Smoking Status Former smoker, quit more than 30 days ago entered on: 05/27/23 Sex Male Sex Representation Male (finding) Note * Williams Eaton DO: PERFORM Event Display: Patient Education Leaflets Authored Date: Back Pain (Acute or Chronic) ?? [id number] Back Pain (Acute or Chronic) Back pain is one of the most common problems. The good news is that most people feel better in 1 to2 weeks, and most of the rest in 1 to 2 months. Most people can remain active. People who have pain??describe it differently???not??everyone is the same. ??? The pain can be sharp, stabbing, shooting, aching, cramping or burning. ??? Movement, standing,bending, lifting, sitting, or walking may worsen pain. ??? It can be limited to one spot or area, or it can be more generalized. ??? It can spread upwards, to the front, or go down your arms or legs (sciatica). ??? It can cause muscle spasm. Most of the time, mechanical problems with the muscles??or spine cause the pain. Mechanical problems??are usually caused by an injury to the muscles or ligaments. Illness can cause back pain, but it's usually not caused by a serious illness. Mechanical problems include:? Physical activity such as sports, exercise, work, or normal activity ??? Overexertion, lifting,pushing, pulling incorrectly or too aggressively ??? Sudden twisting, bending, or stretching from an accident, or accidental movement ??? Poor posture ??? Stretching or moving wrong, without noticingpain at the time ??? Poor coordination, lack of regular exercise (check with your doctor about this) ??? Spinal disc disease or arthritis ??? Stress Pain can also be related to , or illness such as appendicitis, bladder or kidney infections, kidney stones, and pelvic infections. Acute back pain usually gets better in??1 to 2 weeks. Back pain related to disk disease, arthritis in the spinal joints, or narrowing of the spinal canal (spinal stenosis) can become chronic and lastfor months or years. Unless you had a physical injury such as a car accident or fall, X-rays are usually not needed for the first assessment of back pain. If pain continues and does not respond to medical treatment, you may need X-rays and other tests. Home care Try this home care advice: ??? When in bed, try??to find a position of comfort. A firm mattress is best. Try lying flat on your back with pillows under your knees. You can also try lying on your side with your knees bent up toward your chest and a pillow between your knees. ??? At first, don't try to stretch out the sore spots. If there is a strain, it's not like the good soreness you get after exercising without an injury. In this case, stretching may make it worse. ??? Don't sit for long periods, as in a long car ride or during other??travel. This puts more stress on the lower back than standing or walking. ??? During the first 24 to 72 hours after an acute injury or flare up of chronic back pain, apply an ice pack to the painful area for 20 minutes and then remove it for 20 minutes. Do this over a period of 60 to 90 minutes or several times a day. This will reduce swelling and pain. Wrap the ice pack in a thintowel or plastic to protect your skin. ??? You can start with ice, then switch to heat. Heat (hot shower, hot bath, or heating pad) reduces pain and works well for muscle spasms. Heat can be applied to the painful area for 20 minutes then remove it for 20 minutes. Do this over a period of 60 to 90 minutes or several times a day. Don't sleep on a heating pad. It can lead to skin gutierrez or tissue damage. ??? You can alternate ice and heat therapy. Talk with your doctor about??the best treatment for your back pain. ??? Therapeutic massage can help relax the back muscles without stretching them. ??? Be aware of safe lifting methods. Don't lift anything without stretching first. Medicines Talk to your doctor before using medicine, especially if you have other medical problems or are taking other medicines. ??? You may use [id number] medicine as directed on the bottle to control pain, unless another pain medicine was prescribed. Talk with your healthcare provider before using these medicines if you have chronic conditions such as diabetes, liver or kidney disease, stomach ulcers, or digestive bleeding. Also talk with your provider if you take blood thinners. ??? Be careful if you are given a prescription medicines, narcotics, or medicine for muscle spasms. They can cause drowsiness, affect your coordination, reflexes, and judgment. Don't drive or operate heavy machinery. ?? Follow-up care Follow up with your healthcare provider, or as advised.?? If X-rays were taken, you will be told of any new findings that may affect your care. ?? Call 911 Call 911 if any of the following occur: ??? Trouble breathing ??? Confusion ??? Very drowsy or trouble awakening ??? Fainting or loss of consciousness ??? Rapid or very slow heart rate ??? Loss of bowel or bladder control ?? When to seek medical advice Call your healthcare provider right away if any of these occur:? Pain gets worse or spreads toyour legs ??? Your bowel or bladder control changes ??? Fever ??? Blood in your urine ??? Weakness or numbness in one or both legs ??? Numbness in the groin or genital area ?? Last Reviewed Date: 2021 ?? [id number] [employer]. All rights reserved. This information is not intended as a substitute for professional medical care. Always follow your healthcare professional's instructions. ?? Patient Care team information Care Team Personnel Name: Tiffany Suarez NP Position: S Outreach Member Role: PCP Address: [address] [place], [place] [address] Telecom: Care Team Related Persons Name: MARLYN MAN Name: CHIDI MAN Insurance Providers Guarantor name: NA Health Plan Information #: 1 Payer: [employer] Member Number: [id number] Policy Number: NA Group Number: NA Health Plan Information #: 2 Payer: [employer] Member Number: [id number] Policy Number: NA Group Number: NA
== END 2024-05-04 12:12 | disposition home or self-care (01) ==
PROVIDERS: PCP Nurse Practitioner Family; Visit Provider Nurse Practitioner Family
DX: M54.50 Low back pain, unspecified (principal); M79.604 Pain in right leg; Z09 Encounter for follow-up examination after completed treatment for conditions other than malignant neoplasm; M79.605 Pain in left leg

== ENCOUNTER → 2024-05-04 11:05 | Outpatient (BNVA) | payer BC, SELFPAY | PROVIDERS: PCP Nurse Practitioner Family; Visit Provider Nurse Practitioner Family ==

== ENCOUNTER 2024-05-13 08:49 | Outpatient (AMB) | payer BC, SELFPAY ==
--- OUTSIDE RECORDS SUMMARY | 2024-05-13 08:53 | XMS_ITS | Continuity of Care Document ---
Author Name [facility] Organization [facility] Care Team Providers Care Unit Aid Name Role Phone [facility] Unavailable Unavailable Problems Combined list of problems from Department of Defense and Veterans Affairs facilities. It does not include entries that were removed or entered in error. Problem Status Onset Date Problem Type Date of Resolution Comments Source Essential hypertension Active Condition Ambulatory Pharmacy Tinnitus Active Condition Ambulatory Pharmacy Medications Combined list of outpatient medications from Department of Defense and Veterans Affairs facilities.Medications provided include 1) outpatient medications from the last 15 months, and 2) patient-reported medications. Medication Details Route Status Patient Instructions Prescription Expires Prescription Number Last Dispense Date Ordering Provider Order Date Order Qty Source Fish Oil 500 mg oral capsule 1 cap(s), Oral, Daily, 0 total refill(s ), Maintena nce Oral (given by mouth) Ordered 0310C-A F-C-66t h [facility] Tiny Post Flax Seed Oil 0 total refill(s ), Maintena nce Ordered 0310C-A F-C-66t h [facility] Tiny Post Vitamin B Complex oral capsule Oral, Daily, 0 total refill(s ), Maintena nce Oral (given by mouth) Ordered 0310C-A F-C-66t h [facility] Vitamin D3 0 total refill(s ), Maintena nce Ordered 0310C-A F-C-66t h [facility] Tiny Post Allergies, Adverse Reactions, Alerts Combined list of allergies from Department of Defense and Veterans Affairs facilities. It does not include entries that were removed or entered in error. Substance Category Reaction Severity Reaction type Status Date Reported Comments Source No Known Allergies Drug allergy (disorder) active 02/21/2016 [place] [address] Immunizations Combined list of available immunizations from the Department of Defense and Veterans Affairs facilities. Immunization Series Date Given Administered By Site Reaction Lot Number CVX Code Drug License Issuer Status Comments Source influenza, injectable, quadrivalent- pf 2021 [id number] 150 [employer] [facility] ed influenza , injectabl e, quadrival ent-pf 03/25/22 Given Ambulat ory Pharmac y Influenza, injectable, quadrivalent, preservative free 0 [id number] Influenza , injectabl e, quadrival ent, preservat mel free DoD COVID Vaccine [facility] 2020 TRS 208 PFIZER complet ed COVID Vaccine [facility] 03/01/21 Given Ambulat ory Pharmac y COVID-19, mRNA, LNP-S, PF, 30 mcg/0.3 mL dose 2020 [employer] [place] (PFR) Not Given COVID-19, mRNA, LNP-S, PF, 30 mcg/0.3 mL dose DoD SARS-COV-2 (COVID-19) vaccine, mRNA, spike protein, LNP, preservative free, 30 mcg/0.3mL dose 0 2020 Unknown, Provider TRS 208 [employer], [employer] (PFR) complet ed SARS-COV- 2 (COVID-19 ) vaccine, mRNA, spike protein, LNP, preservat mel free, 30 mcg/0.3mL dose DoD Influenza, inj, MDCK, quadrivalent- pf 2020 171 Seq[employer] complet ed Influenza , inj, MDCK, quadrival ent-pf 02/18/21 Given Ambulat ory Pharmac y Influenza, injectable, MDCK, preservative free, quadrivalent 2020 KASSANDRA, () Not Given Influenza , injectabl e, MDCK, preservat mel free, quadrival ent DoD Influenza, injectable, Madin Milroy Canine Kidney, preservative free, quadrivalent 0 2020 171 Seqirus (SEQ) comple t ed Influenza , injectabl e, Madin Angela Canine Kidney, preservat mel free, quadrival ent DoD COVID Vaccine Pfizer 2020 [id number] 208 PFIZER complet ed COVID Vaccine Pfizer 02/07/21 Given Ambulat ory Pharmac y SARS-COV-2 (COVID-19) vaccine, mRNA, spike protein, LNP, preservative free, 30 mcg/0.3mL dose 1 2020 [id number] 208 [employer], [employer] (PFR) complet ed SARS-COV- 2 (COVID-19 ) vaccine, mRNA, spike protein, LNP, preservat mel free, 30 mcg/0.3mL dose DoD SARS-COV-2 (COVID-19) vaccine, mRNA, spike protein, LNP, preservative free, 100 mcg or 50 mcg dose 0 2020 207 () Not Given SARS-COV- 2 (COVID-19 ) vaccine, mRNA, spike protein, LNP, preservat mel free, 100 mcg or 50 mcg dose DoD influenza virus vaccine, inactivated 2019 88 Seqirus complet ed influenza virus vaccine, inactivat ed 04/17/20 Given Ambulat ory Pharmac y influenza, injectable, quadrivalent- pf 2019 TRANSCR IBED 150 complet ed influenza , injectabl e, quadrival ent-pf 04/17/20 Given Ambulat ory Pharmac y Influenza, inj, MDCK, quadrivalent- pf 2019 171 complet ed Influenza , inj, MDCK, quadrival ent-pf 04/17/20 Given Ambulat ory Pharmac y Influenza, injectable, MDCK, preservative free, quadrivalent 2019 JUAN PAREDES () Not Given Influenza , injectabl e, MDCK, preservat mel free, quadrival ent DoD Influenza, injectable, quadrivalent, preservative free 1 2019 150 Transcribed (TRS) complet ed Influenza , injectabl e, quadrival ent, preservat mel free DoD Influenza, injectable, Madin Milroy Canine Kidney, preservative free, quadrivalent 0 2019 171 (MVX) complet ed Influenza , injectabl e, Madin Milroy Canine Kidney, preservat mel free, quadrival ent DoD influenza, injectable, quadrivalent- pf 2018 [id number] 040 150 Seqirus complet ed influenza , injectabl e, quadrival ent-pf 03/22/19 Given Ambulat ory Pharmac y Influenza, injectable, quadrivalent, preservative free 4 2018 [id number] 040 150 Seqirus (SEQ) complet ed Influenza , injectabl e, quadrival ent, preservat mel free DoD influenza, injectable, quadrivalent- pf 2017 [id number] 150 [facility] influenza , injectabl e, quadrival ent-pf 04/07/18 Given Ambulat ory Pharmac y Influenza, injectable, quadrivalent, preservative free 3 2017 [id number] 150 SmithKline (SKB) complet ed Influenza , injectabl e, quadrival ent, preservat mel free DoD Influenza, inj, MDCK, quadrivalent- pf 2016 [id number] 171 Seqirus complet ed Influenza , inj, MDCK, quadrival ent-pf 04/30/17 Given Ambulat ory Pharmac y Influenza, injectable, Madin Milroy Canine Kidney, preservative free, quadrivalent 2 2016 [id number] 171 Seqirus (SEQ) comple t ed Influenza , injectabl e, Madin Milroy Canine Kidney, preservat mel free, quadrival ent DoD hepatitis B adult vaccine 2016 [id number] 43 GlaxoSmithKli ne complet ed hepatitis B adult vaccine 09/01/16 Given Ambulat ory Pharmac y hepatitis B vaccine, adult dosage 3 2016 [id number] 43 SmithKline (SKB) complet ed hepatitis B vaccine, adult dosage DoD measles/mumps /rubella virus vaccine 2015 [id number] 03 Merck & Company Inc complet ed measles/m umps/rube lla virus vaccine 03/31/16 Given Ambulat ory Pharmac y hepatitis B adult vaccine 2015 [id number] 43 GlaxoSmithKli ne complet ed hepatitis B adult vaccine 03/31/16 Given Ambulat ory Pharmac y varicella virus vaccine 2015 [id number] 21 Merck & Company Inc complet ed varicella virus vaccine 03/31/16 Given Ambulat ory Pharmac y influenza, seasonal, injectable-pf 2015 [id number] 140 Seqirus complet ed influenza , seasonal, injectabl e-pf 03/31/16 Given Ambulat ory Pharmac y measles, mumps and rubella virus vaccine 2 2015 [id number] 03 Merck (MSD) complet ed measles, mumps and rubella virus vaccine DoD varicella virus vaccine 1 2015 [id number] 21 Merck (MSD) complet ed varicella virus vaccine DoD hepatitis B vaccine, adult dosage 1 2015 [id number] 43 SmithKline (SKB) complet ed hepatitis B vaccine, adult dosage DoD Influenza, seasonal, injectable, preservative free 1 2015 [id number] 140 Seqirus (SEQ) comple t ed Influenza , seasonal, injectabl e, preservat mel free DoD hepatitis B pediatric/ado lescent 2015 [id number] 08 GlaxoSmithKli ne complet ed hepatitis B pediatric /adolesce nt 02/20/16 Given Ambulat ory Pharmac y measles/mumps /rubella virus vaccine 2015 [id number] 03 Merck & Company Inc complet ed measles/m umps/rube lla virus vaccine 02/20/16 Given Ambulat ory Pharmac y varicella virus vaccine 2015 [id number] 21 Merck & Company Inc complet ed varicella virus vaccine 02/20/16 Given Ambulat ory Pharmac y measles, mumps and rubella virus vaccine 1 2015 [id number] 03 Merck (MSD) complet ed measles, mumps and rubella virus vaccine DoD hepatitis B vaccine, pediatric or pediatric/ado lescent dosage 1 2015 [id number] 08 Exagen [employer]ostics (SKB) complet ed hepatitis B vaccine, pediatric or pediatric /adolesce nt dosage DoD varicella virus vaccine 1 2015 [id number] 21 Merck (MSD) complet ed varicella virus vaccine DoD adenovirus vaccine, live 2015 [id number] 143 Teva Pharmaceutica ls complet ed adenoviru s vaccine, live 02/15/16 Given Ambulat ory Pharmac y tetanus, diphtheria, acellular pertu is 2015 [id number] 115 GlaxoSmithKli ne complet ed tetanus, diphtheri a, acellular pertussis 02/15/16 Given Ambulat ory Pharmac y poliovirus vaccine, inactivated 2015 [id number] 10 sanofi pasteur complet ed polioviru s vaccine, inactivat ed 02/15/16 Given Ambulat ory Pharmac y meningococcal A,C,Y,W-135 (MCV4P) 2015 [id number] 114 sanofi pasteur complet ed meningoco ccal A,C,Y,W-1 35 (MCV4P) 02/15/16 Given Ambulat ory Pharmac y tuberculin purified protein derivative 2015 [id number] 96 sanofi pasteur complet ed tuberculi n purified protein derivativ e 02/15/16 Given Ambulat ory Pharmac y poliovirus vaccine, inactivated 1 2015 [id number] 10 Sanofi Pasteur (PMC) complet ed polioviru s vaccine, inactivat ed DoD meningococcal polysaccharid e (groups A, C, Y and W-135) diphtheria toxoid conjugate vaccine (MCV4P) 1 2015 [id number] 114 Sanofi Pasteur (PMC) complet ed meningoco ccal polysacch aride (groups A, C, Y and W-135) diphtheri a toxoid conjugate vaccine (MCV4P) DoD tetanus toxoid, reduced diphtheria toxoid, and acellular pertu is vaccine, adsorbed 1 2015 [id number] 115 Exagen Diagnostics (SKB) complet ed tetanus toxoid, reduced diphtheri a toxoid, and acellular pertussis vaccine, adsorbed DoD Adenovirus, type 4 and type 7, live, oral 1 2015 [id number] 143 test company (BRR) complet ed Adenoviru s, type 4 and type 7, live, oral DoD hepatitis A vaccine, adult dosage 0 2015 52 () Not Given hepatitis A vaccine, adult dosage DoD Vital Signs Combined list of inpatient and outpatient Vital Signs from Department of Defense and Veterans Affairs, ranging from 12 months to all on record, depending upon the facility. Vital Sign Value Date Comments Source Systolic Blood Pressure 130mm[Hg] 08/27/2022 14:37:00 Ambulatory Pharmacy Diastolic Blood Pressure 88mm[Hg] 08/27/2022 14:37:00 Ambulatory Pharmacy Mean Arterial Pressure, Calc 102mm[Hg] 08/27/2022 14:37:00 Ambulatory P harmacy BP Site 08/27/2022 14:37:00 Ambul atory Pharmacy Blood Pressure Manual 08/27/2022 14:37:00 Ambulatory Pharmacy Peripheral Pulse Rate 67bpm 08/27/2022 12:38:00 Ambulatory Pharmacy Respiratory Rate 16br/min 08/27/2022 12:38:00 Ambulatory Pharmacy BP Site 08/27/2022 12:38:00 Ambul atory Pharmacy Blood Pressure Manual 08/27/2022 12:38:00 Ambulatory Pharmacy Systolic Blood Pressure 160mm[Hg] 08/27/2022 12:38:00 Ambulatory Pharmacy Diastolic Blood Pressure 93mm[Hg] 08/27/2022 12:38:00 Ambulatory Pharmacy Mean Arterial Pressure, Calc 115mm[Hg] 08/27/2022 12:38:00 Ambulatory P harmacy Encounters Combined list of: 1) Encounters from Department of Veterans Affairs facilities going back up to thelast 18 months. 2) Encounters from the Department of Defense facilities going back up to 280 months. Location Location Details Encounter Type Encounter Number Reason For Visit Attending Provider ADM Date DC Date Status Disposition Source [place] [place] [address](Hea ring Conservat ion, BMT) OUTPATIENT [id number] KALEY CAMPOS 02/18 Released w/o Limitations [facility] [place] [address](H earing Conserv ation, BMT) [place] [address]([facility], [facility]) OUTPATIENT [id number] Notes Entered by: RUBY OTOOLE 21 Feb 2016 0828 ------- ------- ------- ------- -- Strep prophyl axsis TARYN OTOOLE 02/20 Released w/o Limitations [facility] [place] [address](T [facility]ly [facility], [facility] d) [facility] Medical [facility](PHA Cell) OUTPATIENT [id number] Notes Entered by: Den VERA 06 Aug 2016 1521 ------- ------- ------- ------- -- ENRRIQUE PARRISH 08/06 Released w/o Limitations [facility] Medical [facility](P LEONARD Cell) [facility] Medical [facility](Denzel er [facility]LY [facility], [facility] Team Leon) TELE CONSULT [id number] Notes Entered by: TEGAN ECHEVERRIA 10 Aug 2016 1614 ------- ------- ------- ------- -- PHA ingrid- HARSH Martinez 08/10 [facility] Medical Group(D over FOR[facility]LY [facility], [facility] Team [employer] longoria) [facility] Medical [facility](Opt ometry Clinic) OUTPATIENT [id number] inproce ssing eye exam [place] 08/11 Released w/o Limitations [facility](O ptometr y Clinic) [address] [place] [address](In and Out Lety [place]) TELE CONSULT [id number] Notes Entered by: Justine ESPINOZA 13 Aug 2016 0840 ------- ------- ------- ------- -- In Process ing ROMA ESPIONZA 08/13 Referred for Appointment [employer](I n and Out Process ing [place]) [employer]([facility] A [place]) OUTPATIENT [id number] Notes Entered by: BRENT OSBORNE 16 Dec 2016 1539 ------- ------- ------- ------- -- Annual Audiogr am BRENT OSBORNE 12/16 Released w/o Limitations [employer]([facility]) [employer]([facility] er FORMERLY [facility], [facility] Team [id number]) OUTPATIENT [id number] tick bite ANDREE, SAM 03/11 Released w/o Limitations [employer](D over [facility], [facility] Team [employer]) [employer]([facility] A [place]) OUTPATIENT [id number] Notes Entered by: Den VERA 15 Dec 2017 1514 ------- ------- ------- ------- -- Occupat ional Audiogr am ENRRIQUE VERA 12/15 Released w/o Limitations [employer](F A [place]) [employer]([facility] C Medical) OUTPATIENT [id number] VIRTUAL GABRIELLE: [facility]/ A/ ABBEY LEACH 01/07 Released w/o Limitations [employer](B [facility] Medical ) [employer]([place]enzel er [facility], [facility] Team [id number]) OUTPATIENT [id number] Back pain; discuss possibl e referBOBBY Guido 04/20 Released w/o Limitations [employer](D over [facility], [facility] Team [employer] s) [employer](N A [place]) OUTPATIENT [id number] Notes Entered by: USAMA FLORES 17 Dec 2018 0701 ------- ------- ------- ------- -- Occupat ional Audiogr am GENA PARKS CHATO 12/17 Released w/o Limitations [employer](F BNA [place]) [employer]([facility]) TELE CONSULT [id number] Notes Entered by: SANTOS ZAMORA 23 Dec 2018 1555 ------- ------- ------- ------- -- Appt Line: MICHELLE/NI [place] 12/23 Referred for Appointment [employer](F light Medicin e Clinic) [employer]([facility]) OUTPATIENT [id number] VIRTUAL GABRIELLE:ALEXX Klein/MICHELLE/[phone] SAM CANDELARIO 01/25 Released w/o Limitations [employer]([facility] Group(Act [facility]) TELE CONSULT [id number] Notes Entered by: GOKUL MENDEZ 06 May 2019 1518 ------- ------- ------- ------- -- Network results Urgent Care consult 05/05/19 SAM CANDELARIO 05/06 [facility] Group(A [facility]) [facility](Act [facility]) OUTPATIENT [id number] Virtual Back pain [phone] BOBBY GONZALEZ 02/09 Released w/o Limitations [address] [place] [address]([facility] [place] [address]([facility] Readiness Clinic) OUTPATIENT [id number] TCON ALEXX EDUARDO EDILIA PAIGE 02/14 Released w/o Limitations [facility] [address](V [facility]) [facility] Medical [facility] TELE CONSULT [id number] Notes Entered by: Paula RAMOS 28 Feb 2020 1513 ------- ------- ------- ------- -- Network Results :PT Initial Evaluat ion Consult 02/24/20 BOBBY GONZALEZ 02/27 [employer](A [facility]) [facility](Act mel [facility]) OUTPATIENT [id number] Virtual : Needs F2F; lower back pain, progres sing (NS) [phone] WHITLEY ESPINOZA BIPIN 05/04 Released w/o Limitations [employer](A [facility]) [facility] Group(Act mel [facility]) TELE CONSULT [id number] Notes Entered by: JANESSA GUTIERREZ 14 Jun 2020 1535 ------- ------- ------- ------- -- NETWORK RESULTS : PT DEBRAI RICKIE N CONSULT 04-27-2 0 RADHA ANDRE 06/14 Referred for Appointment [facility](A [facility]ive [facility]) [facility] Group(Act mel [facility]) TELE CONSULT [id number] NAL Pt with GLENROY Amanda 06/17 Other Not Elsewhere Classified [facility](A ctive [facility]) [facility](Act mel [facility]) TELE CONSULT [id number] Notes Entered by: GOKUL MENDEZ 28 Jun 2020 0822 ------- ------- ------- ------- -- Network Results Sabino mandel Therapy Jose salazar n 06/14/20 MATEUSZ WEBER 06/28 Other Not Elsewhere Classified [facility](A ctive [facility]) [employer](Act [facility]) TELE CONSULT [id number] Notes Entered by: Paula RAMOS 06 Aug 2020 1010 ------- ------- ------- ------- -- Network Results :PT Dischar ge Summary Consult 07/25/20 BOBBY GONZALEZ 08/06 [employer](A ctive [facility]) [facility](Bas e Ops Med Clinic) OUTPATIENT [id number] MHA / PHA CRISTELA BENITEZ 02/26 Released w/o Limitations [facility](B ase Ops Med Clinic) [facility](Bas e Ops Med Clinic) OUTPATIENT [id number] [facility] PHA(MHA Complet ed)(GSU ) CRISTELA BENITEZ 04/04 Released w/o Limitations [facility](B ase Ops Med Clinic) [facility](Fli ght Med [place]) TELE CONSULT [id number] Notes Entered by: MARITA BENITEZ 05 Apr 2021 1623 ------- ------- ------- ------- -- FR Profile Initiat ion STEFAN ALBERTS 04/05 Other Not Elsewhere Classified [facility](F light Med [place]) [facility] Team A) TELE CONSULT [id number] Notes Entered by: YAZMIN MARTINEZ 04 Jun 2021 1534 ------- ------- ------- ------- -- GSU: Profile Request SHARONDA WHALEY 06/04 [facility] Medical [facility]( [facility]) [facility](Bas e Ops Med Clinic) TELE CONSULT [id number] Notes Entered by: STEFAN ALBERTS 26 Aug 2021 1107 ------- ------- ------- ------- -- Secure Messagi ng- Profile Request STEFAN ALBERTS 08/26 Other Not Elsewhere Classified [facility](B ase Ops Med Clinic) [facility](Bas e Ops Med Clinic) OUTPATIENT [id number] PHA-AF CRISTELA BENITEZ 03/20 Released w/o Limitations [facility](B ase Ops Med Clinic) [facility](Bas e Ops Med Clinic) OUTPATIENT [id number] AF PHA, CRISTELA BENITEZ 04/08 Released w/o Limitations [facility](B ase Ops Med Clinic) Procedures Combined list of: 1) Procedures from Department of Veterans Affairs facilities going back up to thelast 18 months, not all VA non-surgical procedures are included; 2) All procedures from the Department of Defense facilities. Procedure Procedure Type Code Date Perfomer Comments Mattc e No data available for this section Ambulato ry Pharmacy ADMINISTRATION OF PATIENT-FOCUSED HEALTH RISK ASSESSMENT INSTRUMENT (EG, HEALTH HAZARD APPRAISAL) WITH SCORING AND DOCUMENTATION, PER STANDARDIZED INSTRUMENT 2021 DoD BRIEF COMM TECH-BASE SERV,E.G. VIRT CHK-IN,BY PHYS/OTH QUAL HCP,RPT E&M SERV,PROV TO EST PT,NOT ORIG FRM REL E/M SERV PROV W/IN PREV 7DAY NOR LEAD TO E/M SRV/PX W/IN NEXT 24HR/SOON GABRIELLE; 5-10 MIN DISC 2021 DoD ADMINISTRATION OF PATIENT-FOCUSED HEALTH RISK ASSESSMENT INSTRUMENT (EG, HEALTH HAZARD APPRAISAL) WITH SCORING AND DOCUMENTATION, PER STANDARDIZED INSTRUMENT 2020 DoD BRIEF COMM TECH-BASE SERV,E.G. VIRT CHK-IN,BY PHYS/OTH QUAL HCP,RPT E&M SERV,PROV TO EST PT,NOT ORIG FRM REL E/M SERV PROV W/IN PREV 7DAY NOR LEAD TO E/M SRV/PX W/IN NEXT 24HR/SOON GABRIELLE; 5-10 MIN DISC 2020 DoD BRIEF COMM TECH-BASE SERV,E.G. VIRT CHK-IN,BY PHYS/OTH QUAL HCP,RPT E&M SERV,PROV TO EST PT,NOT ORIG FRM REL E/M SERV PROV W/IN PREV 7DAY NOR LEAD TO E/M SRV/PX W/IN NEXT 24HR/SOON GABRIELLE; 5-10 MIN DISC 2019 DoD THERAPEUTIC, PROPHYLACTIC, OR DIAGNOSTIC INJECTION (SPECIFY SUBSTANCE OR DRUG); SUBCUTANEOUS OR INTRAMUSCULAR 2015 DoD PURE TONE AUDIOMETRY (THRESHOLD), AUTOMATED; AIR ONLY 2015 DoD WAIVER SERVICES; NOT OTHERWISE SPECIFIED (NOS) 2019 DoD WAIVER SERVICES; NOT OTHERWISE SPECIFIED (NOS) 2019 DoD ADMINISTRATION OF PATIENT-FOCUSED HEALTH RISK ASSESSMENT INSTRUMENT (EG, HEALTH HAZARD APPRAISAL) WITH SCORING AND DOCUMENTATION, PER STANDARDIZED INSTRUMENT 2018 DoD PURE TONE AUDIOMETRY (THRESHOLD), AUTOMATED; AIR ONLY 2018 DoD ONLINE ASSESS &MANAG SERV PROVIDE,A QUAL NONPHYS HCP TO AN ESTABLISHED PAT/GUARDIAN,NOT ORIGINAT FRM RELAT ASSESS &MANAG SERV PROVIDE W/IN THE PREV 7 DAYS,USE THE INTERNET/Training [employer] 2017 DoD PURE TONE AUDIOMETRY (THRESHOLD), AUTOMATED; AIR ONLY 2017 DoD PURE TONE AUDIOMETRY (THRESHOLD), AUTOMATED; AIR ONLY 2016 DoD DETERMINATION OF REFRACTIVE STATE 2016 DoD Threshold Audiogram (Pure Tone) Automated Threshold Audiogram (Pure Tone) Automated 0208T 2018 GENA PARKS [facility] Preventive Medicine Administration Of Health Risk Questionnaire Patient-Focused Preventive Medicine Administration Of Health Risk Questionnaire Patient-Focused [id number] 2017 ABBEY LEACH [facility] Threshold Audiogram (Pure Tone) Automated Threshold Audiogram (Pure Tone) Automated 0208T 2017 ENRRIQUE VERA [facility] Threshold Audiogram (Pure Tone) Threshold Audiogram (Pure Tone) 97559 2016 BRENT OSBORNE Determination Of Refractive State Determination Of Refractive State [address]2587 2016 [place] Ophthalmological New Patient Start Comprehensive Care Ophthalmological New Patient Start Comprehensive Care 13672 2016 [place] Physician Supervised Injection Intramuscular Antibiotic Physician Supervised Injection Intramuscular Antibiotic 63985 2015 TARYN OTOOLE Threshold Audiogram (Pure Tone) Automated Threshold Audiogram (Pure Tone) Automated 0208T 2015 KALEY CAMPOS Preventive Medicine Administration Of Health Risk Questionnaire Patient-Focused Preventive Medicine Administration Of Health Risk Questionnaire Patient-Focused 91171 EDILIA PAIGE AUDIT, PCL-C & PHQ DoD Brief communication technology-based service, e.g. virtual check-in, by a physician or other qualified health care profe tyler who can report evaluation and management services, provided to an established patient, not originating from a related E/M service provided within the previous 7 days nor leading to an E/M service or procedure within the next 24 hours or soonest available appointment; 5-10 minutes of medical discu ion EDILIA PAIGE DoD Internet Med Svc Qual Nonphys Healthcare Prof Up To 7 Days Estab Patient Internet Med Svc Qual Nonphys Healthcare Prof Up To 7 Days Estab Patient [id number] SAM CANDELARIO [facility] Preventive Medicine Administration Of Health Risk Questionnaire Patient-Focused Preventive Medicine Administration Of Health Risk Questionnaire Patient-Focused [id number] SAM CANDELARIO [facility] Waiver services; not otherwise specified (NOS) BOBBY GONZALEZ [facility] Brief communication technology-based service, e.g. virtual check-in, by a physician or other qualified health care profe tyler who can report evaluation and management services, provided to an established patient, not originating from a related E/M service provided within the previous 7 days nor leading to an E/M service or procedure within the next 24 hours or soonest available appointment; 5-10 minutes of medical discu ion CRISTELA BENITEZ A Only telephonic assessment; visit lasted 15 minutes. [facility] Social History Combined list of available smoking, tobacco, and other social history from [facility] Defense and Veterans [facility] facilities. Social History Type Response Date Comment Formerly [facility] e Male 04/21/2022 Ambulatory Pha rmacy Tobacco Never-cigarette user Cigarette use:. Former-other tobacco user (not cigarettes) Other Tobacco use:. reports Hx of tobacco chewing x2 years quit 2021. Ambulatory Pharmacy Sexual Orientation Ambula tory Pharmacy Gender identity Ambulator y Pharmacy This section is an empty social history section. [facility] Assessment and Plan Combined list of future care activities from Department of Defense and Veterans Affairs facilities (e.g., assessment and plan notes, appointments, orders, and referrals). Additional future care activities may be listed in the Plan of Care section. 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 Terminal:?12 September 2022 DOS:?10 November 2022 [place]?Pb/Front:?No; separation. Admin Action: Denies IMR: Green Audiogram- ? Audiogram completed 27 August 2022 WNL; No significant shift in hearing; SM denies any hearing changes, but reports daily ringing in both ears. SM declines Audiology referral at this time, but reports that he will F/U with Audiology for worsening symptoms.? 469: None Active. SM is +Medically clear for?separation from [employer]. ? ? 2.?Essential hypertension Follow a?healthy diet?(low in salt and caffeine), regular exercise,?achieving?a healthy weight, and?monitoring BP regularly with goal of BP under 140/90;?F/U with PCM for management. Seek immediate medical care/ER for persistent chest pain/pressure > 5 minutes, SOB, severe headache, change in vision,?L arm pain/numbness, jaw pain/numbness, lightheadedness/nausea/dizziness (if accompanied by other mentioned cardiac symptoms) are noted. 3.?Overweight Follow a?healthy diet, regular exercise, and weight/BMI reduction achieving a healthy weight/BMI?(BMI 18.5-25.0); F/U with?PCM/Chemical Checker?as needed. 4.?Tinnitus F/U with Audiology for worsening symptoms or as needed. 5.?Stress F/U with MH/BH counseling as needed. Extracted from:Title: SHPE Audiogram Author: DARWIN SNYDER Date: 08/27/22 1.?EXAM, FORMAL OCCUPATIONAL HEALTH PROGRAM INCLUDING HEARING CONSERVATION PROGRAM, PERIODIC FOR CONTINUED SURVEILLANCE FOR OCCUPATIONAL WORKPLACE EXPOSURE 2.?Audiogram normal 3.?Health education given 05/13/2024 Ambulatory Pharmacy Functional Status Combined list of recent functional and cognitive assessments recorded at [facility] and [facility] ([facility] Functional [place] Measurement (FIM) Scale: 1 = Total Assistance (Subject = 0% +), 2 = Maximal Assistance (Subject = 25% +), 3 = Moderate Assistance (Subject = 50% +), 4 = Minimal Assistance (Subject = 75% +), 5 = Supervision, 6 = Modified [place] (Device), 7 = Complete [place] (Timely, Safely). Assessment Date/Time Source Assessment Type Assessment Skill Assessment Score Assessment Details No data available for this section
[2024-05-13 09:10] VITALS: BMI 29.8
--- NOTE | 2024-05-13 09:10 | A.SPINEOV_ITS ---
Vital Signs 05/13/24 09:10 Height 6 ft Weight 220 lb BMI 29.8 Intake Visit Reasons: LBP Intake Note: Mr. Arroyo is here today c/o low back pain. 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 He describes as an intense pain that ended up causing him to fall to the floor. He felt like he could not stand up in his legs were wobbly. Ultimately he went to the emergency room with his mother, he was evaluated, had medications IM, some muscle relaxers and steroid prescribed. He was able to be discharged. He had a CT scan done at that time as well. He was out of work for a week. He is feeling better down his back at work but is still uncomfortable primarily in his lower lumbar region. There is no radicular symptoms at this time. He has done PT in the past for this previously and as mentioned has had cortisone injections. PMH: Otherwise healthy, had ORIF of a left wrist fracture Social hx: Does not smoke, drink use any recreational drugs Medications: As above, will take p.r.n. 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 I reviewed the CT, had do not have a report but it looks otherwise normal. His strength and exam are all normal. I suspect that a muscular type injury that seems to be resolving. It appears more comfortable here today in the office. I reassured him that most of the time these things come and go on their own and rarely needs surgery. He is scheduled for an MRI so I told him I would be happy to review it forearm once it was done. He will call my office once that is completed. Thank you for allowing us to care for your patient. The total time spent with this visit with this patient was 45 minutes reviewing history, physical exam, lumbar CT imaging review, and implementation of treatment plan or further diagnostic testing Ko Hudson MD,PhD [facility] Coding Level of Care Code New Pt Level 4 (34719) Diagnoses Low back pain radiating to both legs M54.50; M79.604; M79.605
== END 2024-05-13 10:08 | disposition home or self-care (01) ==
PROVIDERS: PCP Nurse Practitioner Family; Referring Provider Nurse Practitioner Family; Visit Provider Physician Assistant
DX: M54.50 Low back pain, unspecified (principal); M79.604 Pain in right leg; M79.605 Pain in left leg
CPT/HCPCS: 99204

== ENCOUNTER 2024-08-01 10:50 | Outpatient (AMB) | payer BC, SELFPAY ==
--- NOTE | 2024-08-01 10:52 | A.OFFVIS_ITS ---
Vital Signs 08/01/24 10:55 Height 6 ft Weight 227 lb BMI 30.8 BP 144/90 H Blood Pressure Location Lt brachial Position Sitting Pulse 72 Pulse Source Pulse Oximeter Pulse Oximetry (%) 97 Oxygen Delivery Method Room Air Intake Visit Reasons: Low back pain, unspecified Intake Note: 2-3 pain today Allergies No Known Allergies Allergy (Verified 08/01/24 10:58) Medication List - Last Reconciled 08/01/24 by Eileen Chavarria, SALES CORRESPONDENCE CLERK cyclobenzaprine 10 mg PO TID methylprednisolone (Medrol (Jony)) PO PER PKG DIR methylprednisolone 4 mg PO DAILY trazodone 50 mg PO BEDTIME PRN HPI HPI Low back pain, unspecified: Details: History of Present Illness The patient is a 29-year-old male presenting with chronic low back pain. The pain began in 2017 during the patient's service and has persisted over the years. The patient describes that his low back pain has previously led him to consult with various specialists and undergo multiple injections, which provided minimal relief. The latest major flare-up occurred in early May while performing an activity as routine as laundry, requiring an emergency room visit at which point no significant findings were noted on a CT scan. Upon specialist consultation, imaging studies in 2020 confirmed degenerative changes in the L5-S1 disc, described as bulging albeit minor. Prior diagnosis has been inconsistent, with some practitioners indicating a problem with the disc and others suggesting no significant issue. A history of physical therapy is noted, though extensive previous therapy and a prescribed home exercise program have been described, adherence varies. The patient seeks clarity on the progression and management plan for continuing low back discomfort, noting limitations in routine activities due to pain exacerbations. Pain Description - Onset: 2018 following service. - Quality: Chronic, flaring pain. - Primary Location: Low back. - Radiation: Pain radiates to the thighs, reaching the knees bilaterally. - Aggravating Factors: Physical activity, specifically bending and lifting. - Alleviating Factors: Pain has become manageable, previously influenced by ineffective injection mentions. - Activities Interference: Limited mobility during flare-ups, inability to walk during severe episodes. Physical Exam Results - MRI from 2020: Mild bulging and degeneration noted in the L5-S1 disc. - Previous CT findings: Described as normal at the time of ER visit. Pain Management - Affect: Patient describes pain as manageable most days (2-3/10) but severely disabling during flares. - Analgesia: Past injections have been ineffective; patient currently managing pain without specified medication. - Adverse Effects: No adverse effects noted from pain management interventions discussed. - Activities of Daily Living: Pain has significantly affected mobility during flare; adopted a routine of home exercises sporadically for relief. - Aberrant Drug-Related Behaviors: No reported misuse of medications. [facility] Medical History (Updated 05/04/24 @ 12:12 by Tiffany Kowalski [facility]) Hypertension Surgical History (Updated 09/17/23 @ 11:17 by Ruby Irizarry CMA) History of surgery on left wrist Family History (Updated 09/17/23 @ 11:19 by Ruby Irizarry CMA) Father Hypertension Diabetes Pancreatic cancer Maternal Grandmother Diabetes Social History (Updated 09/17/23 @ 11:04 by Ruby Irizarry CMA) Household Members: Family Both parents involved: No Caregiver staying overnight: No Housing: House Are you a primary animal care assistant to a significant other at home: No Do you presently have visiting nurse or other home services: No 75 years or older and lives alone: No Alcohol intake: current Alcohol intake frequency: a few times a week Alcohol type: beer Patient Tobacco Use Status: Never used Tobacco e-Cigarette/Vaping Use: Never Used service: Yes ([employer]) Current occupational status: employed 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 Cognitive needs: No Hearing needs: Yes ([facility]- tinn[facility] and hearing loss ) Vision needs: No Physical Exam Vital Signs: Last Vital Signs Pulse 72 08/01/24 10:55 BP 144/90 H 08/01/24 10:55 Pulse Ox 97 08/01/24 10:55 Oxygen Delivery Method Room Air 08/01/24 10:55 BMI result Body Mass Index 30.8 Assessment & Plan Assessment & Plan (1) Low back pain radiating to both legs: Code(s): M54.50 - Low back pain, unspecified; M79.604 - Pain in right leg; M79.605 - Pain in left leg Category: Medical Plan Plan For managing the chronic low back pain associated with degenerative disc disease at L5-S1, I advise the patient to undertake a structured physician-directed exercise program for six weeks to potentially qualify for an MRI through insurance. The plan excludes further injection therapies due to past ineffective outcomes. Instead, focus on low-impact exercise such as swimming to decrease spinal load, combined with core strengthening exercises to build support and lessen symptom severity. Engage in inversion exercises to help decompress the spine if feasible. Long-term pain management strategy will incorporate maintaini ng active exercise habits. Regarding acute episodes, temporary nerve stimulation can be a helpful adjunct if the pain elevates to a substantial degree, affecting daily functioning. Patient was informed and verbally consented to the use of an ambient scribe for clinic note documentation during this visit. Discussion Notes I discussed the presence of degenerative disc disease at L5-S1, contributing to the patient's chronic low back pain. Alternative management options focusing on non-surgical approaches were emphasized over injections, given their insufficient past impact. We reviewed the MRI study suggesting mild disc degeneration and decided against pursuing further invasive procedures. Swimming and core-focused exercises were highlighted for supporting disc health and spinal mobility. I discouraged the use of injections and potentially harmful interventions like burning nerves in such a young patient, given their restrictive benefit-risk ratio. Future MRI review will ensue current therapy course compliance. The patient committed to reinitiating physical therapy to qualify for required imaging and avoid future surgical interventions. Patient Instructions - Engage in a home exercise program directed by a physical therapist for at least six weeks. - Focus on low-impact activities like swimming to relieve the spine of weight- bearing stress. - Perform core strengthening exercises regularly as instructed. - Opt for inversion exercises to naturally decompress the spinal vertebrae. - Stay hydrated and consider purchasing a quality yoga mat for regular exercise sessions. - Avoid invasive procedures such as nerve burning; they are not recommended for long-term relief. - Contact the clinic if there are any significant changes in symptoms or inability to manage pain. Coding Level of Care Code New Pt Level 4 (23203) Diagnoses Low back pain radiating to both legs M54.50; M79.604; M79.605
[2024-08-01 10:55] VITALS: BP 144/90; PULSE 72; O2SAT 97; BMI 30.8
--- OUTSIDE RECORDS SUMMARY | 2024-08-01 12:47 | XMS_ITS | Continuity of Care Document ---
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 It does not include entries that were removed or entered in error. Problem Status Onset Date Problem Type Date of Resolution Comments Source Essential hypertension Active Condition 3107Y-OU-A-6 6th [facility] [employer] Tinnitus Active Condition 6491C-SZ-A-6 6th [facility] [employer] Medications Combined list of outpatient medications from [...] Maintena nce Oral (given by mouth) Ordered 2022 0310C-A F-C-66t h [facility] [employer] Flax Seed Oil 0 total refill(s ), Maintena nce Ordered 2022 0310C-A F-C-66t h [facility] [employer] [facility] Vitamin B Complex oral capsule Oral, Daily, 0 total refill(s ), Maintena nce Oral (given by mouth) Ordered 2022 0310C-A F-C-66t h [facility] Vitamin D3 0 total refill(s ), Maintena nce Ordered 2022 0310C-A F-C-66t h [facility] [employer] Allergies, Adverse Reactions, Alerts Combined list of allergies from Department of Defense and Veterans Affairs facilities. It does not include entries that were removed or entered in error. Substance Category Reaction Severity Reaction type Status Date Reported Comments Source No Known Allergies Drug allergy (disorder) active 02/21/2016 [place] [address] Immunizations Combined list of available immunizations from the Department of Defense and Veterans Affairs facilities. Immunization Series Date Given Administered By Site Reaction Lot Number CVX Code Drug Verifier Status Comments Source influenza, injectable, quadrivalent- pf 2021 [id number] 150 GlaxoSmAchaLaKli ne complet ed influenza , injectabl e, quadrival ent-pf 03/25/22 Given Ambulat ory Pharmac y Influenza, injectable, quadrivalent, preservative free 0 2021 [id number] 150 SmithKlEyeScribes (SKB) complet ed Influenza , injectabl e, quadrival ent, preservat mel free DoD COVID Vaccine Pfizer 2020 TRS 208 PFIZER complet ed COVID Vaccine Pfizer 03/01/21 Given Ambulat ory Pharmac y COVID-19, mRNA, LNP-S, PF, 30 mcg/0.3 mL dose 2020 KEELY hiQ Labs [facility] (PFR) Not Given COVID-19, mRNA, LNP-S, PF, 30 mcg/0.3 mL dose DoD SARS-COV-2 (COVID-19) vaccine, mRNA, spike protein, LNP, preservative free, 30 mcg/0.3mL dose 0 2020 Unknown, Provider TRS 208 [employer] [facility] (PFR) complet ed SARS-COV- 2 (COVID-19 ) [...] free, quadrival ent DoD Influenza, injectable, Madin Angela Canine Kidney, preservative free, quadrivalent 0 2020 171 Seqirus (SEQ) comple t ed Influenza , injectabl e, Madin Angela Canine Kidney, preservat mel free, quadrival ent DoD COVID Vaccine Pfizer 2020 [id number] 208 PFIZER complet ed COVID Vaccine Pfizer 02/07/21 Given Ambulat ory Pharmac y SARS-COV-2 (COVID-19) vaccine, mRNA, spike protein, LNP, preservative free, 30 mcg/0.3mL dose 1 2020 [id number] 208 Pfizer, Inc (PFR) complet ed SARS-COV- 2 (COVID-19 ) [...] preservat mel free DoD Influenza, injectable, Madin Angela Canine Kidney, preservative free, quadrivalent 0 2019 171 (MVX) complet ed Influenza , injectabl e, Madin Angela Canine Kidney, preservat mel free, quadrival ent DoD influenza, injectable, quadrivalent- pf 2018 [id number] 040 150 Seqirus complet ed influenza , injectabl e, quadrival ent-pf 03/22/19 Given Ambulat ory Pharmac y Influenza, injectable, quadrivalent, preservative free 4 2018 [id number] 040 150 Seqirus (SEQ) complet ed Influenza , injectabl e, quadrival ent, preservat mel free DoD influenza, injectable, quadrivalent- pf 2017 [id number] 150 GlaxoSmithKli ne complet ed influenza , injectabl e, quadrival ent-pf 04/07/18 Given Ambulat ory Pharmac y Influenza, injectable, quadrivalent, preservative free 3 2017 [id number] 150 SmithKline (SKB) complet ed Influenza , injectabl e, quadrival ent, preservat mel free DoD Influenza, inj, MDCK, quadrivalent- pf 2016 [id number] 171 Seqirus complet ed Influenza , inj, MDCK, quadrival ent-pf 04/30/17 Given Ambulat ory Pharmac y Influenza, injectable, Madin Angela Canine Kidney, preservative free, quadrivalent 2 2016 [id number] 171 Seqirus (SEQ) comple t ed Influenza [...] dosage DoD measles/mumps /rubella virus vaccine 2015 [id number] 03 Merck & Company Inc complet ed measles/m umps/rube lla virus vaccine 03/31/16 Given Ambulat ory Pharmac y hepatitis B adult vaccine 2015 [id number] 43 GlaxoSmithKli ne complet ed hepatitis B adult vaccine 03/31/16 Given Ambulat ory Pharmac y varicella virus vaccine 2015 [id number] 21 Merck & Company Inc complet ed varicella virus vaccine 03/31/16 Given Ambulat ory Pharmac y influenza, seasonal, injectable-pf 2015 [id number] 140 Seqirus complet ed influenza , seasonal, injectabl e-pf 03/31/16 Given Ambulat ory Pharmac y measles, mumps and rubella virus vaccine 2 2015 [id number] 03 Merck (MSD) complet ed measles, mumps and rubella virus vaccine DoD varicella virus vaccine 1 2015 [id number] 21 Merck (MSD) complet ed varicella virus vaccine DoD hepatitis B vaccine, adult dosage 1 2015 [id number] 43 SmithKline (SKB) complet ed hepatitis B vaccine, adult dosage DoD Influenza, seasonal, injectable, preservative free 1 2015 [id number] 140 Seqirus (SEQ) comple t ed Influenza , seasonal, injectabl e, preservat mel free DoD hepatitis B pediatric/ado lescent 2015 [id number] 08 GlaxoSmithKli ne complet ed hepatitis B pediatric /adolesce nt 02/20/16 Given Ambulat ory Pharmac y measles/mumps /rubella virus vaccine 2015 [id number] 03 Merck & Company Inc complet ed measles/m umps/rube lla virus vaccine 02/20/16 Given Ambulat ory Pharmac y varicella virus vaccine 2015 [id number] 21 Merck & Company Inc complet ed varicella virus vaccine 02/20/16 Given Ambulat ory Pharmac y measles, mumps and rubella virus vaccine 1 2015 [id number] 03 Merck (MSD) complet ed measles, mumps and rubella virus vaccine DoD hepatitis B vaccine, pediatric or pediatric/ado lescent dosage 1 2015 [id number] 08 SmithKline (SKB) complet ed hepatitis B vaccine, pediatric or pediatric /adolesce nt dosage DoD varicella virus vaccine 1 2015 [id number] 21 Merck (MSD) complet ed varicella virus vaccine DoD adenovirus vaccine, live 2015 [id number] 6 143 Teva Pharmaceutica ls complet ed adenoviru s vaccine, live 02/15/16 Given Ambulat ory Pharmac y tetanus, diphtheria, acellular pertu is 2015 [id number] 115 GlaxoSmithKli ne complet ed tetanus, diphtheri a, acellular pertussis 02/15/16 Given Ambulat ory Pharmac y poliovirus vaccine, inactivated 2015 [id number] 10 sanofi pasteur complet ed polioviru s vaccine, inactivat ed 02/15/16 Given Ambulat ory Pharmac y meningococcal A,C,Y,W-135 (MCV4P) 2015 [id number] 114 sanofi pasteur complet ed meningoco ccal A,C,Y,W-1 35 (MCV4P) 02/15/16 Given Ambulat ory Pharmac y tuberculin purified protein derivative 2015 [id number] 96 sanofi pasteur complet ed tuberculi n purified protein derivativ e 02/15/16 Given Ambulat ory Pharmac y poliovirus vaccine, inactivated 1 2015 [id number] 10 Sanofi Pasteur ([facility]) complet ed polioviru s vaccine, inactivat ed DoD meningococcal polysaccharid e (groups A, C, Y and W-135) diphtheria toxoid conjugate vaccine (MCV4P) 1 2015 [id number] 114 Sanofi Pasteur ([facility]) complet ed meningoco ccal polysacch aride (groups A, C, Y and W-135) diphtheri a toxoid conjugate vaccine (MCV4P) DoD tetanus toxoid, reduced diphtheria toxoid, and acellular pertu is vaccine, adsorbed 1 2015 [id number] 115 Quandora (SKB) complet ed tetanus toxoid, reduced diphtheri a toxoid, and acellular pertussis vaccine, adsorbed DoD Adenovirus, type 4 and type 7, live, oral 1 2015 [id number] 6 143 ActionFlow (BRR) complet ed Adenoviru s, type 4 [...] facility. Vital Sign Value Date Comments Source BP Site Left arm 08/27/2022 14:37:00 5743M-MS-K-66th [facility] Systolic Blood Pressure 130 mm[Hg] 08/28/19 23 14:37:00 9098W-BX-A-66th [facility] Diastolic Blood Pressure 88 mm[Hg] 023 14:37:00 8828E-YC-G-66th [facility] Blood Pressure Manual Manual 08/27/2022 14:37:00 4017D-ZX-I-66th [facility] Mean Arterial Pressure, Calc 102 mm[Hg] 08/27/2022 14:37:00 4024N-CD-M-66th [facility] BP Site Right arm 08/27/2022 12:38:00 1158E-BJ-M-66th [facility] Peripheral Pulse Rate 67 bpm 08/27/2022 12:38:00 6106W-AZ-N-66th [facility] Blood Pressure Manual Automatic 08/27/2022 12:38:00 9163W-TT-L-66th [facility] Respiratory Rate 16 br/min 08/27/2022 12:38:00 8505Q-MH-Z-66th [facility] Mean Arterial Pressure, Calc 115 mm[Hg] 08/27/2022 12:38:00 6742E-FI-G-66th [facility] Systolic Blood Pressure 160 mm[Hg] 08/28/19 23 12:38:00 6875Q-GE-H-66th [facility] Diastolic Blood Pressure 93 mm[Hg] 023 12:38:00 5852M-JK-B-66th [facility] Encounters Combined list of: 1) Encounters from Department of Veterans Affairs facilities going backup to the last 18 months, not all VA inpatient encounters are included; 2) Encounters from the Department of Defense facilities going backup to 280 months. Location Location Details Encounter Type Encounter Number Reason For Visit Attending Provider ADM Date DC Date Status Disposition [place] [address](Hea ring Conservat ion, BMT) OUTPATIENT [id number] KALEY CAMPOS 02/18 Released w/o Limitations [facility] [place] [place] [address](H earing Conserv ation, BMT) [place] [address]([facility]) OUTPATIENT [id number] Notes Entered by: RUBY OTOOLE 21 Feb 2016 0828 ------- ------- ------- ------- -- Strep prophyl axsis TARYN OTOOLE 02/20 Released w/o Limitations [facility] [place] [place] [address](Renee [facility] romeo) [facility](PHA Cell) OUTPATIENT [id number] Notes Entered by: Romeo VERA 06 Aug 2016 1521 ------- ------- ------- ------- -- PHA ENRRIQUE VERA 08/06 Released w/o Limitations [employer](P LEONARD Cell) [facility](Denzel er [facility] Team [place]) TELE CONSULT [id number] Notes Entered by: TEGAN ECHEVERRIA 10 Aug 2016 1614 ------- ------- ------- ------- -- PHA ingrid- HARSH Martinez 08/10 [employer](D over [facility] Team Hercule s) [employer] [facility](Opt ometry Clinic) OUTPATIENT [id number] inproce ssing eye exam [place] 08/11 Released w/o Limitations [employer](O ptometr y Clinic) [employer](In and Out Arunin reagan [place]) TELE CONSULT [id number] Notes Entered by: Justine ESPINOZA 13 Aug 2016 0840 ------- ------- ------- ------- -- In Process ing ROMA ESPINOZA 08/13 Referred for Appointment [employer](I n and Out Process ing Celio) [employer](FBN A [place]) OUTPATIENT [id number] Notes Entered by: BRENT OSBORNE 16 Dec 2016 1539 ------- ------- ------- ------- -- Annual Audiogr BRENT Arriaga 12/16 Released w/o Limitations [employer](F BNA [place]) [employer](Denzel er [facility] Team [place]) OUTPATIENT [id number] tick bite SAM CANDELARIO 03/11 Released w/o Limitations [employer](D over [facility] Team [employer] s) [employer](FBN A [place]) OUTPATIENT [id number] Notes Entered by: Romeo VERA 15 Dec 2017 1514 ------- ------- ------- ------- -- Occupat ional Audiogr ENRRIQUE Martinez 12/15 Released w/o Limitations [employer](F BNA [place]) [employer](BOM C Medical) OUTPATIENT [id number] VIRTUAL GABRIELLE: ALEXX/ MICHELLE/ ABBEY LEACH 01/07 Released w/o Limitations [facility](B [facility] ) [employer](Denzel er [facility] Team [place]) OUTPATIENT [id number] Back pain; discuss possibl e referra BOBBY Jensen 04/20 Released w/o Limitations [employer](D over [facility] Team Hercule s) [employer](FBN A Celio) OUTPATIENT [id number] Notes Entered by: USAMA FLORES 17 Dec 2018 0701 ------- ------- ------- ------- -- Occupat ional Audiogr am GENA PARKS TYMIKKI 12/17 Released w/o Limitations [employer](F BNA [place]) [employer]([facility]) TELE CONSULT [id number] Notes Entered by: SANTOS ZAMORA 23 Dec 2018 1555 ------- ------- ------- ------- -- Appt Line: MICHELLE/NI Walton 12/23 Referred for Appointment [facility](F light Medicin e Clinic) [facility](Act mel Duty Health Clinic) OUTPATIENT [id number] VIRTUAL GABRIELLE:ALEXX SHEEHAN/4 [phone] SAM CANDELARIO 01/25 Released w/o Limitations [facility](A ctive Duty Health Clinic) [facility](Act mel Duty Health [facility]) TELE CONSULT [id number] Notes Entered by: GOKUL MENDEZ 06 May 2019 1518 ------- ------- ------- ------- -- Network results Urgent Care consult 05/05/19 SAM CANDELARIO 05/06 [facility](A ctive Duty Health Clinic) [facility](Act mel Duty Health Clinic) OUTPATIENT [id number] Virtual Back pain [phone] BOBBY GONZALEZ 02/09 Released w/o Limitations [address] [place] [address](A [facility]) [place] [address](VIP RR Readiness [facility]) OUTPATIENT [id number] TCON PHA AF CELIO EDILIA PAIGE 02/14 Released w/o Limitations [facility] [place] [address](V IPRR Readine ss Clinic) [address] [place] [address]([facility]) TELE CONSULT [id number] Notes Entered by: Paula RAMOS 28 Feb 2020 1513 ------- ------- ------- ------- -- Network Results :PT Initial Evaluat ion Consult 02/24/20 BOBBY GONZALEZ 02/[address] [place] [address](A [facility]) [address] [place] [address]([facility]) OUTPATIENT [id number] Virtual : Needs F2F; lower back pain, progres sing (NS) [phone] WHITLEY ESPINOZA 05/04 Released w/o Limitations [address] [place] [address](A [facility]) [address] [place] [address]([facility]) TELE CONSULT [id number] Notes Entered by: JANESSA GUTIERREZ 14 Jun 2020 1535 ------- ------- ------- ------- -- NETWORK RESULTS : PT COSME DAMIAN N CONSULT 04-27-2 0 RADHA ANDRE 06/14 Referred for Appointment [address] [place] [address](A [facility]) [address] [place] [address]([facility]) TELE CONSULT [id number] NAL Pt with GLENROY Amanda 06/17 Other Not Elsewhere Classified [address] [place] [address](A [facility]) [address] [place] [address]([facility]) TELE CONSULT [id number] Notes Entered by: GOKUL MENDEZ 28 Jun 2020 0822 ------- ------- ------- ------- -- Network Results Armandoa ministerio Therapy Cosme bejarano 06/14/20 MATEUSZ WEBER 06/28 Other Not Elsewhere Classified [facility](A ctive Duty Health Clinic) [employer] [facility] [employer](Act mel Duty Health Clinic) TELE CONSULT [id number] Notes Entered by: Paula RAMOS 06 Aug 2020 1010 ------- ------- ------- ------- -- Network Results :PT Dischar ge Summary Consult 07/25/20 BOBBY GONZALEZ 08/06 [facility](A ctive Duty Health Clinic) [facility](Bas e Ops Med Clinic) OUTPATIENT [id number] MHA / PHA CRISTELA BENITEZ 02/26 Released w/o Limitations [facility](B ase Ops Med Clinic) [facility](Bas e Ops Med Clinic) OUTPATIENT [id number] AF [facility](MHA Complet ed)(GSU ) CRISTELA BENITEZ 04/04 Released w/o Limitations [facility](B ase Ops Med Clinic) [facility](Fli ght Med [place]) TELE CONSULT [id number] Notes Entered by: MARITA BENITEZ 05 Apr 2021 1623 ------- ------- ------- ------- -- FR Profile Initiat STEFAN Lambert 04/05 Other Not Elsewhere Classified [facility](F light Med [place]) [facility](Rivera scom [facility] Team A) TELE CONSULT [id number] Notes Entered by: YAZMIN MARTINEZ 04 Jun 2021 1534 ------- ------- ------- ------- -- GSU: Profile Request SHARONDA WHALEY 06/04 [facility](H anscom [facility] Team A) [facility](Bas e Ops Med Clinic) TELE CONSULT [id number] Notes Entered by: STEFAN ALBERTS 26 Aug 2021 1107 ------- ------- ------- ------- -- [facility] Profile Request STEFAN ALBERTS 08/26 Other Not Elsewhere Classified [facility](B ase Ops Med Clinic) [facility](Bas e Ops Med Clinic) OUTPATIENT [id number] PHA-AF CRISTELA BENITEZ 03/20 Released w/o Limitations [facility](B ase Ops Med Clinic) [facility](Bas e Ops Med Clinic) OUTPATIENT [id number] AF PHA, CRISTELA BENITEZ 04/08 Released w/o Limitations [facility](B ase Ops Med Clinic) Procedures Combined list of: 1) Procedures from Department of Veterans Affairs facilities going [facility], not all VA non-surgical procedures are included; 2) All procedures from the Department of Defense facilities. Procedure Procedure Type Code Date Perfomer Comments Sourc e No data available for this section Ambulato ry Pharmacy Threshold Audiogram (Pure Tone) Automated Threshold Audiogram (Pure Tone) Automated 0208T 2018 GENA PARKS [facility] Preventive Medicine Administration Of Health Risk Questionnaire Patient-Focused Preventive Medicine Administration Of Health Risk Questionnaire Patient-Focused 91518 2017 ABBEY LEACH [facility] Threshold Audiogram (Pure Tone) Automated Threshold Audiogram (Pure Tone) Automated 0208T 2017 ENRRIQUE VERA [facility] Threshold Audiogram (Pure Tone) Threshold Audiogram (Pure Tone) 31278 2016 BRENT OSBORNE [facility] Determination Of Refractive State Determination Of Refractive State [address]694 2016 [place] Ophthalmological New Patient Start Comprehensive Care Ophthalmological New Patient Start Comprehensive Care [address]56 2016 [place] Physician Supervised Injection Intramuscular Antibiotic Physician Supervised Injection Intramuscular Antibiotic 64586 2015 TARYN OTOOLE [facility] Threshold Audiogram (Pure Tone) Automated Threshold Audiogram (Pure Tone) Automated 0208T 2015 KALEY CAMPOS [facility] Preventive Medicine Administration Of Health Risk Questionnaire Patient-Focused Preventive Medicine Administration Of Health Risk Questionnaire Patient-Focused 05194 EDILIA PAIGE AUDIT, PCL-C & PHQ DoD Brief communication technology-based service, e.g. virtual check-in, by a physician or other qualified health care profe ional who can report evaluation and management services, provided to an established patient, not originating from a related E/M service provided within the previous 7 days nor leading to an E/M service or procedure within the next 24 hours or soonest available appointment; 5-10 minutes of medical discu ion EDILIA PAIGE Internet Med Svc Qual Nonphys Healthcare Prof Up To 7 Days Estab Patient Internet Med Svc Qual Nonphys Healthcare Prof Up To 7 Days Estab Patient [id number] SAM CANDELARIO [facility] Preventive Medicine Administration Of Health Risk Questionnaire Patient-Focused Preventive Medicine Administration Of Health Risk Questionnaire Patient-Focused 53621 SAM CANDELARIO [facility] Waiver services; not otherwise specified (NOS) BOBBY GONZALEZ [facility] Brief communication technology-based service, e.g. virtual check-in, by a physician or other qualified health care profe ional who can report evaluation and management services, provided to an established patient, not originating from a related E/M service provided within the previous 7 days nor leading to an E/M service or procedure within the next 24 hours or soonest available appointment; 5-10 minutes of medical discu CRISTELA Gar A Only telephonic assessment; visit lasted 15 minutes. DoD BRIEF COMM TECH-BASE SERV,E.G. VIRT CHK-IN,BY PHYS/OTH QUAL HCP,RPT E&M SERV,PROV TO EST PT,NOT ORIG FRM REL E/M SERV PROV W/IN PREV 7DAY NOR LEAD TO E/M SRV/PX W/IN NEXT 24HR/SOON GABRIELLE; 5-10 MIN DISC 2019 DoD THERAPEUTIC, PROPHYLACTIC, OR DIAGNOSTIC INJECTION (SPECIFY SUBSTANCE OR DRUG); SUBCUTANEOUS OR INTRAMUSCULAR 2015 DoD PURE TONE AUDIOMETRY (THRESHOLD), AUTOMATED; AIR ONLY 2015 DoD ADMINISTRATION OF PATIENT-FOCUSED HEALTH RISK ASSESSMENT [...] 24HR/SOON GABRIELLE; 5-10 MIN DISC 2020 DoD WAIVER SERVICES; NOT OTHERWISE SPECIFIED (NOS) [...] PROVIDE W/IN THE PREV 7 DAYS,USE THE [employer] COMM NETWORK 2017 DoD PURE TONE AUDIOMETRY (THRESHOLD), AUTOMATED; AIR ONLY 2017 DoD PURE TONE AUDIOMETRY (THRESHOLD), AUTOMATED; AIR ONLY 2016 DoD DETERMINATION OF REFRACTIVE STATE 2016 DoD Social History Combined list of available smoking, tobacco, and other social history from Department of Defense and Veterans Affairs facilities. Social History Type Response Date Comment Sourc e Sex Representation Male 04/21/2022 Unknow n Organization Tobacco Never-cigarette user Cigarette use:. Former-other tobacco user (not cigarettes) Other Tobacco use:. reports Hx of tobacco chewing x2 years quit 2021. Ambulatory Pharmacy Sexual Orientation Ambula tory Pharmacy Gender identity Ambulator y Pharmacy This section is an empty social history section. DoD Assessment and Plan Combined list of future care activities from Department of Defense and Veterans Affairs facilities (e.g., assessment and plan notes, appointments, orders, and referrals). Additional future care activities may be listed in the Plan of Care section. 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 [...] Active. SM [facility] ? ? 2.?Essential hypertension Follow a?healthy diet?(low in salt and caffeine), regular exercise,?achieving?a healthy weight, and?monitoring BP regularly with goal of BP under 140/90;?F/U with PCM for management. Seek immediate medical care/ER for persistent chest pain/pressure > 5 minutes, SOB, severe headache, change in vision,?L arm pain/numbness, jaw pain/numbness, lightheadedness/nausea/dizzine ss (if accompanied by other mentioned cardiac symptoms) are noted. 3.?Overweight Follow a?healthy diet, regular exercise, and weight/BMI reduction achieving a healthy weight/BMI?(BMI 18.5-25.0); F/U with?PCM/Cloth Covered Helmet Puller?as needed. 4.?Tinnitus F/U with Audiology for worsening symptoms or as needed. 5.?Stress F/U with MH/ counseling as needed. Extracted from:Title: SHPE Audiogram Author: DARWIN SNYDER Date: 08/27/22 1.?EXAM, FORMAL OCCUPATIONAL HEALTH PROGRAM INCLUDING HEARING CONSERVATION PROGRAM, PERIODIC FOR CONTINUED SURVEILLANCE FOR OCCUPATIONAL WORKPLACE EXPOSURE 2.?Audiogram normal 3.?Health education given 08/01/2024 0633H-VB-Y-66th [facility] Functional Status Combined list of recent functional and cognitive assessments recorded at Department of Defense and Veterans Affairs (VA).VA Functional Cameron Measurement (FIM) Scale: 1 = Total Assistance (Subject = 0% +), 2 = Maximal Assistance (Subject = 25% +), 3 = Moderate Assistance (Subject = 50% +), 4 = Minimal Assistance (Subject = 75% +), 5 = Supervision, 6 = Modified Cameron (Device), 7 = Complete Cameron (Timely, Safely). Assessment Date/Time Source Assessment Type Assessment Skill Assessment Score Assessment Details No data available [email or web address] this section
== END 2024-08-01 11:31 | disposition home or self-care (01) ==
PROVIDERS: PCP Nurse Practitioner Family; Referring Provider Nurse Practitioner Family; Visit Provider Internal Medicine
DX: M54.50 Low back pain, unspecified (principal); M79.604 Pain in right leg; M79.605 Pain in left leg
CPT/HCPCS: 99204

== ENCOUNTER → 2024-08-01 10:50 | Outpatient (BNVA) | payer BC, SELFPAY | PROVIDERS: PCP Nurse Practitioner Family; Referring Provider Nurse Practitioner Family; Visit Provider Internal Medicine ==

== ENCOUNTER 2025-03-31 07:43 | Outpatient (AMB) | payer BC, SELFPAY ==
--- NOTE | 2025-03-31 07:49 | A.OFFPC_ITS ---
Vital Signs 03/31/25 07:52 03/31/25 08:07 Height 6 ft Weight 222 lb BMI 30.1 BP 167/101 H 140/84 H Blood Pressure Location Lt brachial Lt brachial Position Sitting Sitting Pulse 62 Pulse Source Auscultation Pulse Oximetry (%) 100 Oxygen Delivery Method Room Air Intake Visit Reasons: 1 year CPE Allergies No Known Allergies Allergy (Verified 03/31/25 07:53) Medication List - Last Reconciled 03/31/25 by DIONNE Hinkle No Known Home Meds Tobacco use date assessed: 03/31/25 Dental Screening Dental Screen Date: 03/31/25 Did you have a dental visit in the last 12 months?: Yes Did you have a dental problem in the last 6 months where you did not have access to dental care?: No Was dental information given to patient?: Patient has dentist HPI HPI Comments History of Present Illness Details 30-year-old male with hypertension, obes ity, benign heart murmur, chronic lumbar back pain with bilateral radiculopathy, hyperhydrosis Surgical hx: Left wrist fx w/ repair Social history: [employer] f[employer]: no changes Health maintenance Tdap 06/05/2022 Flu declined 03/31/25 and Echocardiogram 12/25/2019 12 for heart murmur, no prolapse or abnormalities Renal ultrasound ordered July of 2022 * no results Specialists [facility] - MRI of lumbar spine without contrast done 04/26/2021: Unremarkable lumbar spine MRI, no evidence of nerve root impingement; treated with injections . Optho History of Present Illness The patient is a 30-year-old male presenting for a complete physical exam. Hypertension: - The patient has a history of borderlin e hypertension and was previously on blood pressure medication from a prior primary care provider. - He has been monitoring his blood press ure, with home logs showing average readings of 130/75-80 mmHg, occasionally reaching 140 mmHg systolic. - A previous workup included a renal art danish scan, which was normal. Chronic low back pain with radiculopathy: - The patient has chronic lumbar back pa in with radiculopathy. - A staffing specialist recommended an MRI in July, but it was not approved by his insurance, which requires 6-9 weeks of recent physical therapy. - He has undergone physical therapy in t he past. - Conservative management, including str etching, swimming, and yoga, was suggested by the specialist. - The patient has difficulty scheduling the required physical therapy due to his work schedule and plans to address it next year. - He is prescribed cyclobenzaprine as ne eded for his back, but reports not using it. Insomnia: - The patient has a history of insomnia, which is sometimes exacerbated by his back pain, leading to anxiety. - He is prescribed trazodone for sleep b ut reports that he does not take it and that it did not help when he tried it. Hyperhidrosis: - The patient has a history of hyperhidr osis. - A referral to dermatology was made las t year; the patient is unsure if he attended the appointment, and no consult note was received. Photosensitivity: - The patient reports ongoing sensitivit y to light, which has remained stable. - He has an active referral to an ophtha lmologist but has not yet scheduled an appointment. Past Medical History - Borderline hypertension - Obesity - Chronic lumbar back pain with radiculo paige - Hyperhidrosis - Insomnia - Medication non-adherence: Reports not taking prescribed trazodone or cyclobenzaprine. Past Surgical History - No changes reported. Family History - No changes reported. Social History - The patient denies any changes in his living situation. - His work schedule makes it difficult t o attend consecutive physical therapy appointments. - He was previously in the . - For exercise, he has signed up at the [facility] to swim and also performs stretching at home. Health Maintenance - Labs including a urine microalbumin wi ll be drawn today, and results will be communicated via the patient portal. - The patient was encouraged to follow u p with an electric welder for stable photosensitivity using his active referral. - The influenza vaccine was offered and declined. Review of Systems - General: Denies new or changed symptom s. - Eyes: Reports photosensitivity, which is stable in severity. - Ears: Reports normal hearing and tinni tus. Denies ear burning or pain. - Nose: Denies epistaxis. - Neck: Denies pain with swallowing. - Skin: Reports hyperhidrosis. Denies ot her skin changes. - GI: Reports regular bowel movements. - Musculoskeletal: Reports chronic lumba r back pain with radiculopathy. - Neurological: Reports insomnia, which is worse when pain is severe. - Psychiatric: Reports occasional anxiet y when unable to sleep. Physical Exam General: Well developed, well nourished, in no acute distress. Appears stated age. Head: Normocephalic, atraumatic. Eyes: Pupils are equal, round and reactive to light and accommodation. Conjunctivae are clear. Scleras nonicteric bilat. Vision grossly normal. Patient reports sensitivity to light. Ears: TMs clear AU, EACS WNL. Patient reports normal ringing in the ears. Nose: Patent, without discharge. Neck: No carotid bruit bilat. Supple, no adenopathy or thyromegaly. Breast: Edu on SBE Lungs: Clear to auscultation bilaterally. No rales, rhonchi or wheeze noted. Good air flow in all reid. Heart: Regular rate and rhythm. No murmurs, click, rubs or gallops are noted. Abdomen: Bowel sounds present in all quadrants. The abdomen is soft, nontender, with no masses or organomegaly noted. No hernias are noted. : Deferred. Reviewed EDUARDO & recommendations Pulses: Peripheral pulses are equal and palpable bilaterally. Extremities: No clubbing, cyanosis nor edema is noted. Neurologic: Gait and station normal. Cranial Nerves 2-12 intact. Motor strength grossly symmetrical and intact. No sensory loss. Balance normal. Skin: No rashes, ulcers, or lesions noted. Turgor is good. Skin color is good. Hair and nails are without abnormalities. Patient reports hyperhidrosis. Psych: Normal eye contact, affect and mood appropriate, and normal interactions. Patient is alert and appropriate to context. Reports periods of insomnia and anxiety related to pain. Results - Previous renal artery scan was reporte d as normal. Labs done today, results pending Medical Decision Making The patient is a 30-year-old male here for a complete physical with a history of borderline hypertension, chronic low back pain, and insomnia. His blood pressure in the office today was significantly elevated at 167/101 mmHg, which came down to 140/84 mmHg on manual recheck. Given his history of borderline home readings and the risk of end-organ damage to the heart and kidneys, it is prudent to initiate antihypertensive therapy rather than continue monitoring. Considering his concurrent insomnia and anxiety related to pain, I believe a medication that addresses multiple symptoms would be most beneficial. Therefore, I plan to prescribe either clonidine or propranolol at bedtime, as both can lower blood pressure and aid with sleep, providing a 'two-for-one' benefit. Lisinopril was considered but is less ideal as it would only target his hypertension. I will make the final medication choice after reviewing his lab results, which will be drawn today, and start with a low dose to target a blood pressure closer to 120 systolic without causing hypotension. Regarding his chronic low back pain, the primary barrier to further evaluation is the insurance requirement for recent physical therapy before approving an MRI. The patient is unable to accommodate this due to his work schedule but is pursuing conservative measures like swimming. We will defer further action on this until next year, as per the patient's request. Follow-up for the hypertension management will be conducted via telehealth in 6-8 weeks for his convenience. Plan 1. Hypertension - Given the elevated in-office blood pre ssure of 167/101 mmHg (rechecked at 140/84 mmHg) and a history of borderline readings, the decision was made to initiate antihypertensive therapy to mitigate risks of end-organ damage. - Pending review of today's lab results, a prescription for either clonidine 0.1 mg or propranolol 60 mg will be sent to his pharmacy. - The chosen medication is to be taken a t bedtime to also assist with his insomnia. - The patient will monitor his blood pre ssure at home once a week. - A telehealth follow-up is scheduled in 6-8 weeks to assess medication efficacy and tolerance. 2. Chronic Low Back Pain With Radiculopa thy - Management is currently limited by ins urance denial of an MRI pending a 6-9 week course of physical therapy. - The patient is unable to commit to y sical therapy at this time due to work constraints. - He will continue with conservative meg f-management, including swimming and stretching. - The plan to pursue physical therapy an d the subsequent MRI is deferred until next year at the patient's request. 3. Insomnia - The patient's insomnia is linked to hi s chronic pain and was not responsive to prior trials of trazodone. - This will be addressed with the initia tion of either clonidine or propranolol for hypertension, as both have sedative properties that may improve sleep. Patient Instructions - Please stop at the senior front end [facility] to sched ule a telehealth (video) follow-up appointment for about 6-8 weeks from now. - After scheduling your appointment, pro ceed to the lab to have your blood drawn today. - I will send you a message on the [employer] portal later today with your lab results and a prescription for a new blood pressure medication. - Take the new medication at bedtime. - Check your blood pressure at home once a week, and also on the day of your video follow-up visit. - For your video visit, you will receive a text message with a link. Please test your camera and microphone a few minutes before the appointment starts. - You are encouraged to use your open re ferral to see the eye doctor for your light sensitivity. Consent The risks, benefits, and alternatives of initiating antihypertensive medication, including potential side effects and the risks of untreated hypertension, were discussed. The patient provided verbal consent to proceed with treatment pending lab results and agreed to a telehealth follow-up. Patient was informed and verbally consented to the use of an ambient scribe for clinic note documentation during this visit. An additional 20 minutes was spent addressing the problem(s) noted at todays visit. This includes time spent before the visit reviewing the chart, time spent during the visit, and time spent after the visit on documentation reviewing laboratory results, diagnostic imaging, medications, performing a medically necessary evaluation, counseling on diagnoses, care coordination, ordering appropriate tests, ordering appropriate medications, review of tests performed by other providers, reporting test results with the patient, communication with other healthcare providers. [facility] Medical History Hypertension Surgical History History of surgery on left wrist Family History Father Hypertension Diabetes Pancreatic cancer Maternal Grandmother Diabetes Social History Household Members: Family Both parents involved: No Caregiver staying overnight: No Housing: House Are you a primary care director to a significant other at home: No Do you presently have visiting nurse or other home services: No 75 years or older and lives alone: No Alcohol intake: current Alcohol intake frequency: a few times a week Alcohol type: beer Patient Tobacco Use Status: Never used Tobacco e-Cigarette/Vaping Use: Never Used service: Yes ([employer]) Current occupational status: employed 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 1. Little interest or pleasure in doing things: not at all 2. Feeling down, depressed, or hopeless: not at all 3. Trouble falling or staying asleep, or sleeping too much: not at all 4. Feeling tired or having little energy: not at all 5. Poor appetite or overeating: not at all 6. Feeling bad about yourself - or that you are a failure or have let yourself or your family down: not at all 7. Trouble concentrating on things, such as reading the newspaper or watching television: not at all 8. Moving or speaking so slowly that other people could have noticed. Or the opposite - being so fidgety or restless that you have been moving around a lot more than usual: not at all 9. Thoughts that you would be better off or of hurting yourself in some way: not at all Total score: 0 Depression Screening Interpretation: Negative Depression Screening Done: Yes 47256 - PHQ-9 Billing: Yes Source: Developed by Drs. Minor Ugalde, Courtney Alvaraod, Dalton Carranza and colleagues, with an educational marshall from [employer]. Thrive Questionnaire Date Thrive assessed: 03/24/25 I am a: Patient What is your living situation today?: I have a steady place to live Within the past 12 months, did the food you bought not last and you didn't have the money to get more?: Never true Within the past 12 months, did you worry whether your food would run out before you got money to buy more?: Never true Do you have trouble paying for medicines?: No Do you have trouble getting transportation to medical appointments?: No Do you have trouble paying your heating and electricity bill?: No Do you have trouble taking care of your child, family member or friend?: No Do you have trouble with day-to-day activities such as bathing, preparing meals, shopping, managing finances, etc.?: No Are you currently unemployed and looking for a job?: No Are you interested in more education?: No Please select the resources that you would like help with: None Currently or been in a relationship where the following occur: No concerns repo rted THRIVE Score: 0 AUDIT C Alcohol Use Questionnaire (AUDIT-C) 1. How often do you have a drink containing alcohol?: Monthly or less 2. How many drinks containing alcohol do you have on a typical day when you are drinking?: 3 or 4 3. How often do you have six or more drinks on one occasion?: Less than monthly Total Score: 3 Score Reviewed/Action Taken: Yes TOD-7 AMB Questionnaire TOD-7 Date TOD - 7 assessed: 03/31/25 Feeling nervous, anxious, or on edge: 1 = Several days Not being able to stop or control worryin = Several days Worrying too much about different things: 1 = Several days Trouble relaxin = More than half the days Being so restless that it is hard to sit still: 2 = More than half the days Becoming easily annoyed or irritable: 2 = More than half the days Feeling afraid as if something awful might happen: 0 = Not at all Total TOD-7 score (0-4 normal; 5-9 mild; 10-14 moderate; 15-21 severe): 9 Source: Developed by Drs. Minor Ugalde, Courtney Alvarado, Dalton Carranza and colleagues, with an educational marshall from [employer]. TOD-7 Assessment Billing TOD-7 Assessment Tool: TOD-7 Assessment 10921 Physical exam (Primary Care) Tobacco/Smoking Status: Tobacco use Status Tobacco use date assessed 03/28/24 05/04/24 11:27 Patient Tobacco Use Status Never used Tobacco 05/04/24 11:27 e-Cigarette/Vaping Use Never Used 05/04/24 11:27 Depression Screening Interpretation: Negative Thrive Assessment: Date of Thrive Assessment Date Thrive assessed 03/24/25 03/24/25 12:13 Currently or been in a relationship where the following occur: No concerns reported Coding Level of Care Code Est Pt Level 3 (86711) Est Pt Prev Care 18-39y(37827) Diagnoses Encounter for general adult medical examination without abnormal findings Z00.00 Primary hypertension I10 Hypertension type: primary hypertension Mixed hyperlipidemia E78.2 Hyperlipidemia type: mixed hyperlipidemia Obesity (BMI 30.0-34.9) E66.9 Serum calcium elevated E83.52 Chronic midline low back pain without sciatica M54.50; G89.29 Back pain location: low back pain Back pain laterality: midline Sciatica presence: without sciatica Low back pain radiating to both legs M54.50; M79.604; M79.605 Photosensitivity L56.8 Hyperhidrosis R61 Elevated liver enzymes R74.8 Additional Codes PHQ-9 - 51972 - PHQ-9 Billing: Yes ([id number]) TOD-7 Assessment Billing - TOD-7 Assessment Tool: TOD-7 Assessment 67646 ([id number]) Assessment & Plan Assessment & Plan (1) Encounter for general adult medical examination without abnormal findings: Onset Date: ~03/31/25 Code(s): Z00.00 - Encounter for general adult medical examination without abnormal findings Category: Medical (2) Hypertension: Code(s): I10 - Essential (primary) hypertension Category: Medical Qualifiers: Hypertension type: primary hypertension Qualified Code(s): I10 - Essential (primary) hypertension (3) Hyperlipidemia: Code(s): E78.5 - Hyperlipidemia, unspecified Category: Medical Qualifiers: Hyperlipidemia type: mixed hyperlipidemia Qualified Code(s): E78.2 - Mixed hyperlipidemia (4) Obesity (BMI 30.0-34.9): Comment: Life style mods Code(s): E66.9 - Obesity, unspecified Category: Medical (5) Serum calcium elevated: Code(s): E83.52 - Hypercalcemia Category: Medical (6) Chronic back pain: Comment: Present for years. Taking NSAIDs to treat. Advised against taking NSAIDs due to the elevated blood pressure when he does take this. Advised to take a 1000 mg of Tylenol 3 times a day, not to exceed this dose. Take at least 2000 mg per day every day given the chronicity of his back pain. [facility] and [facility]. Code(s): M54.9 - Dorsalgia, unspecified; G89.29 - Other chronic pain Category: Medical Qualifiers: Back pain location: low back pain Back pain laterality: midline Sciatica presence: without sciatica Qualified Code(s): M54.50 - Low back pain, unspecified; G89.29 - Other chronic pain (7) Low back pain radiating to both legs: Code(s): M54.50 - Low back pain, unspecified; M79.604 - Pain in right leg; M79.605 - Pain in left leg Category: Medical (8) Photosensitivity: Comment: Refer to ophthalmology Code(s): L56.8 - Other specified acute skin changes due to ultraviolet radiation Category: Medical (9) Hyperhidrosis: Code(s): R61 - Generalized hyperhidrosis Category: Medical (10) Elevated liver enzymes: Code(s): R74.8 - Abnormal levels of other serum enzymes Category: Medical Plan . Orders: Orders Microalbumin, Random (w Creat) Today E78.5 - Hyperlipidemia, unspecified, I10 - Essential (primary) hypertension, R74.8 - Abnormal levels of other serum enzymes Hemoglobin A1c Today E78.5 - Hyperlipidemia, unspecified, I10 - Essential (primary) hypertension, R74.8 - Abnormal levels of other serum enzymes Medications: Discontinued trazodone take 1/2 to 1 tab 30 min before bed as needed for sleep Discontinued Reason: Patient no longer taking 50 mg PO BEDTIME PRN 30 tabs 2RF sleep methylprednisolone (Medrol (Jony)) Discontinued Reason: Patient Completed Course PO PER PKG DIR 21 ea 0RF cyclobenzaprine Discontinued Reason: Patient Completed Course 10 mg PO TID 15 tabs 0RF Patient Instructions: Health screenings for men You should visit your health care provider regularly, even if you feel healthy. The purpose of these visits is to: Screen for medical issues Assess your risk for future medical problems Encourage a healthy lifestyle Update vaccinations and other preventive care services Help you get to know your provider in case of an illness Information Even if you feel fine, you should still see your provider for regular checkups. These visits can help you avoid problems in the future. For example, the only way to find out if you have high blood pressure is to have it checked regularly. High blood sugar and high cholesterol level also may not have any symptoms in the early stages. Simple blood tests can check for these conditions. There are specific times when you should see your provider or receive specific health screenings. The [place] Preventive Services Task Force publishes a list of recommended screenings. Below are screening guidelines for men ages 40 to 64. BLOOD PRESSURE SCREENING Have your blood pressure checked at least once every year. Watch for blood pressure screenings in your area. Ask your provider if you can stop in to have your blood pressure checked. Ask your provider if you need your blood pressure checked more often if: You have diabetes, heart disease, kidney problems, or are overweight or have certain other health conditions You have a first-degree relative with high blood pressure You are Black Your blood pressure top number is from 120 to 129 mm Hg, or the bottom number is from 70 to 79 mm Hg If the top number is 130 mm Hg or greater or the bottom number is 80 mm Hg or greater, this is considered stage 1 hypertension. Schedule an appointment with your provider to learn how you can lower your blood pressure. Effects of age on blood pressure CHOLESTEROL SCREENING Cholesterol screening should begin at age 35 for men with no known risk factors for coronary heart disease. Repeat cholesterol screening should take place: Every 5 years for men with normal cholesterol levels More often if changes occur in lifestyle (including weight gain and diet) More often if you have diabetes, heart disease, kidney problems, or certain other conditions COLORECTAL CANCER SCREENING If you are under age 45, talk to your provider about getting screened. You may need to be screened if you have a strong family history of colon cancer or polyps. Screening may also be considered if you have risk factors such as a history of inflammatory bowel disease or polyps. If you are age 45 to 75, you should be screened for colorectal cancer. There are several screening tests available: A stool-based fecal occult blood (gFOBT) or fecal immunochemical test (FIT) every year A stool sDNA test every 1 to 3 years Flexible sigmoidoscopy every 5 years or every 10 years with stool testing FIT done every year CT colonography (virtual colonoscopy) every 5 years Colonoscopy every 10 years You may need a colonoscopy more often if you have risk factors for colorectal cancer, such as: Ulcerative colitis A personal or family history of colorectal cancer A history of growths in your colon called adenomatous polyps DENTAL EXAM Go to the dentist once or twice every year for an exam and cleaning. Your dentist will evaluate if you have a need for more frequent visits. DIABETES SCREENING All adults who do not have risk factors for diabetes should be screened starting at age 35 and repeated every 3 years. If you have other risk factors for diabetes, such as a first degree relative with diabetes, overweight or obesity, high blood pressure, prediabetes, or a history of heart disease, you may be tested more often. If you are overweight and have other risk factors, such as high blood pressure and are planning to become , screening is recommended. EYE EXAM Have an eye exam every 2 to 4 years ages 40 to 54 and every 1 to 3 years ages 55 to 64. Your provider may recommend more frequent eye exams if you have vision problems or glaucoma risk. Have an eye exam that includes an examination of your retina (back of your eye) at least every year if you have diabetes. IMMUNIZATIONS Commonly needed vaccines include: Flu shot: get one every year COVID-19 vaccine: ask your provider what is best for you Tetanus-diphtheria and acellular pertussis (Tdap) vaccine: have as one of your tetanus-diphtheria vaccines if you did not receive it as an adolescent Tetanus-diphtheria: have a booster (or Tdap) every 10 years Varicella vaccine: receive 2 doses if you never had chickenpox or the varicella vaccine and were born in 1979 or after Hepatitis B vaccine: receive 2, 3, or 4 doses, depending on your exact circumstances, if you did not receive these as a child or adolescent, until age 59 Shingles (herpes zoster) vaccine: at or after age 50 Ask your provider if you should receive other immunizations, especially if you have certain medical conditions, such as diabetes or are at increased risk for some diseases such as pneumonia. INFECTIOUS DISEASE SCREENING Screening for hepatitis C: all adults ages 18 to 79 should get a one-time test for hepatitis C. Screening for human immunodeficiency virus (HIV): all people ages 15 to 65 should get a one-time test for HIV. Depending on your lifestyle and medical history, you may need to be screened for infections such as syphilis, chlamydia, and other infections. LUNG CANCER SCREENING You should have an annual screening for lung cancer with low-dose computed tomography (LDCT) if: You are age 50 to 80 years AND You have a 20 pack-year smoking history AND You currently smoke or have quit within the past 15 years OSTEOPOROSIS SCREENING If you are age 50 to 64 and have risk factors for osteoporosis, you should discuss screening with your provider. Risk factors can include long-term steroid use, low body weight, smoking, heavy alcohol use, having a fracture after age 50, or a family history of hip fracture or osteoporosis. Osteoporosis PHYSICAL EXAM All adults should visit their provider from time to time, even if they are healthy. The purpose of these visits is to: Screen for diseases Assess risk of future medical problems Encourage a healthy lifestyle Update vaccinations and other preventive care services Maintain a relationship with a provider in case of an illness Your height, weight, and body mass index (BMI) should be checked at every exam. During your exam, your provider may ask you about: Depression and anxiety Diet and exercise Alcohol and tobacco use Safety, such as use of seat belts and smoke detectors Your medicines and risk for interactions PROSTATE CANCER SCREENING If you're 55 through 69 years old, before having the test, talk to your provider about the pros and cons of having a PSA test. Ask about: Whether screening decreases your chance of dying from prostate cancer. Whether there is any harm from prostate cancer screening, such as side effects from testing or overtreatment of cancer when discovered. Whether you have a higher risk of prostate cancer than others. If you are age 55 or younger, screening is not generally recommended. You should talk with your provider about if you have a higher risk for prostate cancer. Risk factors include: Having a family history of prostate cancer (especially a brother or father) Being If you choose to be tested, the PSA blood test is repeated over time (yearly or less often), though the best frequency is not known. Prostate examinations are no longer routinely done on men with no symptoms. Prostate cancer SKIN EXAM Your provider may check your skin for signs of skin cancer, especially if you're at high risk. People at high risk include those who have had skin cancer before, have close relatives with skin cancer, or have a weakened immune system. TESTICULAR EXAM The [place] Preventive Services Task Force (USPSTF) now recommends against performing testicular self-exams. Doing testicular self-exams has been shown to have little to no benefit.
[2025-03-31 07:52] VITALS: BP 167/101; PULSE 62; O2SAT 100; BMI 30.1
[2025-03-31 08:07] VITALS: BP 140/84
== END 2025-03-31 08:18 | disposition home or self-care (01) ==
LOC: HO.HMCFM 07:44
PROVIDERS: PCP Nurse Practitioner Family; Visit Provider Nurse Practitioner Family
DX: Z00.00 Encounter for general adult medical examination without abnormal findings (principal); I10 Essential (primary) hypertension; E78.2 Mixed hyperlipidemia; E66.9 Obesity, unspecified; Z68.30 Body mass index [BMI] 30.0-30.9, adult; E83.52 Hypercalcemia; M54.50 Low back pain, unspecified; G89.29 Other chronic pain; M79.604 Pain in right leg; M79.605 Pain in left leg; L56.8 Other specified acute skin changes due to ultraviolet radiation; R61 Generalized hyperhidrosis; R74.8 Abnormal levels of other serum enzymes

== ENCOUNTER 2025-03-31 07:43 | Outpatient (REF) | payer BC, SELFPAY ==
[2025-03-31 11:59] LABS: Alanine Aminotransferase 34 U/L (0-40); Albumin Level 4.9 g/dL (3.5-5.0); Alkaline Phosphatase 41 U/L (39-117); Anion Gap 12 (12-20); Aspartate Amino Transferase 30 U/L (5-37); Blood Urea Nitrogen 16 mg/dL (9-16); Calcium 9.6 mg/dL (8.4-10.2); Carbon Dioxide 28 mmol/L (22-29); Chloride 105 mmol/L (96-108); Cholesterol 216 mg/dL (<200); Estimated Glomerular Filt Rate > 60; HDL Cholesterol 44 mg/dL (>40); Potassium 3.9 mmol/L (3.3-5.1); Sodium 141 mmol/L (135-145); Total Protein 7.6 g/dL (6.5-8.0); Triglycerides 250 mg/dL (<150)
[2025-03-31 12:10] LABS: HBS Num1 23.73 mIU/mL (0-7.99); HBc Num1 0.09 S/CO (0.00-0.79); HBsAGNum1 0.40 S/CO (0.00-0.99); Hepatitis A Antibody IgM 0.18 Index (0-0.79); Hepatitis B Surface Antigen Negative (Negative); ~HepC Num1 0.07 S/CO (0.00-0.79); ~Hepatitis A Antibody IgM Nonreactive (Nonreactive); ~Hepatitis B Surface Antibody REACTIVE (Nonreactive); ~Hepatitis C Antibody Nonreactive (Nonreactive)
[2025-03-31 12:29] LABS: Microalbum/Creatinine Ratio Ur 4.7 ug/mg cr (<30)
[2025-04-03 16:54] LABS: Calcium, Ionized 5.2 mg/dL (4.7-5.5)
== END 2025-03-31 07:44 | disposition home or self-care (01) ==
LOC: HO.WFDLDS 07:43
PROVIDERS: PCP Nurse Practitioner Family; Visit Provider Nurse Practitioner Family
DX: Z00.00 Encounter for general adult medical examination without abnormal findings (principal); I10 Essential (primary) hypertension; M54.16 Radiculopathy, lumbar region; G47.00 Insomnia, unspecified; F41.9 Anxiety disorder, unspecified; R61 Generalized hyperhidrosis; L56.8 Other specified acute skin changes due to ultraviolet radiation; E78.2 Mixed hyperlipidemia; E66.9 Obesity, unspecified; E83.52 Hypercalcemia; M79.604 Pain in right leg; M79.605 Pain in left leg; R74.8 Abnormal levels of other serum enzymes; Z13.1 Encounter for screening for diabetes mellitus
CPT/HCPCS: 36415; 80053; 80061; 82043; 82330; 82570; 83036; 86704; 86706; 86709; 86803; 87340; 96127

== ENCOUNTER 2025-05-08 15:12 | Outpatient (AMB) | payer BC, SELFPAY ==
--- NOTE | 2025-05-08 14:37 | MHC.PC.OV ---
Vital Signs 05/08/25 16:05 05/08/25 16:05 BP 126/80 118/67 Intake Visit Reasons: 6-8 weeks telehealth fu HTN Allergies No Known Allergies Allergy (Verified 05/08/25 14:38) Medication List - Last Reconciled 05/08/25 by LIBAN Hinkle- propranolol ER 60 mg PO BEDTIME Tobacco use date assessed: 03/31/25 Dental Screening Dental Screen Date: 03/31/25 HPI HPI Comments History of Present Illness Details 30-year-old male with hypertension, obesity, benign heart murmur, chronic lumbar back pain with bilateral radiculopathy, hyperhydrosis Surgical hx: Left wrist fx w/ repair Social history: [employer]: no changes Health maintenance Tdap 06/05/2022 Flu declined 03/31/25 and Echocardiogram 12/25/2019 12 for heart murmur, no prolapse or abnormalities Renal ultrasound ordered July of 2022 * no results Specialists [facility] - MRI of lumbar spine without contrast done 04/26/2021: Unremarkable lumbar spine MRI, no evidence of nerve root impingement; treated with injections . Optho History of Present Illness The patient is a 30 year old male presenting with a follow-up on hypertension and insomnia via televideo Hypertension: - The patient was started on propranolol ER 60 mg at bedtime at the last visit to manage his blood pressure. - He reports his blood pressure has improved, with recent readings of 126/80 mmHg and 118/67 mmHg. - He reports taking the medication every night, but missed the last week of doses as he forgot the medication while he was away. Insomnia: - The patient was started on propranolol ER 60 mg at bedtime at his last visit to also help with his insomnia. - He reports that the medication helps with his sleep and that he has been sleeping better. - He noted a noticeable negative difference in his sleep during the recent week when he did not take his medication. Previously Hypertension: - The patient has a history of borderline hypertension and was previously on blood pressure medication from a prior primary care provider. - He has been monitoring his blood pressure, with home logs showing average readings of 130/75-80 mmHg, occasionally reaching 140 mmHg systolic. - A previous workup included a renal artery scan, which was normal. Insomnia: - The patient has a history of insomnia, which is sometimes exacerbated by his back pain, leading to anxiety. - He is prescribed trazodone for sleep but reports that he does not take it and that it did not help when he tried it. Review of Systems - Neurological/Sleep: Reports improvement in sleep while on propranolol. - Cardiovascular: Reports lower blood pressure readings. Denies other cardiovascular symptoms. Physical Exam - Constitutional: Well-appearing male on video telehealth visit. Results - Home Blood Pressure Monitoring: Most recent reading was 126/80 mmHg, with another reading of 118/67 mmHg. Started w/ video visit but ran into technical difficulties w/ sound so changed to voice only for quality Assessment and Plan 1. Hypertension - The patient's blood pressure is well-controlled on propranolol ER 60 mg daily at bedtime, with recent home readings of 126/80 mmHg and 118/67 mmHg. - Continue current dose of propranolol ER 60 mg. A 90-day supply was sent in March, so no refill is needed at this time. The patient was advised to message via the portal for a refill if he runs low before his next appointment. 2. Insomnia - The patient's insomnia has improved with the use of propranolol ER 60 mg at bedtime. - Continue current medication as it is also benefiting his sleep. 3. Follow-up - A follow-up visit is scheduled to monitor his conditions and medication efficacy. - The patient will follow up for a virtual visit in approximately two months, scheduled for July 10 at 4:00 PM. Patient was given time to ask questions. All questions were answered to their satisfaction. Telehealth Attestation This visit was conducted via telephone due to technical issues with the video platform. The patient has been explained that this is an interactive (audio/video) telehealth encounter and what that consists of. The patient understands and wishes to proceed. [employer] platform was used. Total time spent caring for the patient today was 15 minutes. This includes time spent before the visit reviewing the chart, time spent during the visit, and time spent after the visit on documentation, reviewing laboratory results, diagnostic imaging, medications, performing a medically necessary evaluation, counseling on diagnoses, care coordination, ordering appropriate tests, ordering appropriate medications, review of tests performed by other providers, reporting test results with the patient, communication with other healthcare providers. [facility] Medical History Hypertension Surgical History History of surgery on left wrist Family History Father Hypertension Diabetes Pancreatic cancer Maternal Grandmother Diabetes Social History Household Members: Family Both parents involved: No Caregiver staying overnight: No Housing: House Are you a primary career counselor to a significant other at home: No Do you presently have visiting nurse or other home services: No 75 years or older and lives alone: No Alcohol intake: current Alcohol intake frequency: a few times a week Alcohol type: beer Patient Tobacco Use Status: Never used Tobacco e-Cigarette/Vaping Use: Never Used service: Yes ([employer]) Current occupational status: employed 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 Minor Ugalde, Courtney Alvarado, Dalton Carranza and colleagues, with an educational marshall from [employer]. Physical exam (Primary Care) Tobacco/Smoking Status: Tobacco use Status Tobacco use date assessed 03/31/25 05/08/25 14:38 Patient Tobacco Use Status Never used Tobacco 05/08/25 14:38 e-Cigarette/Vaping Use Never Used 05/08/25 14:38 Thrive Assessment: Date of Thrive Assessment Date Thrive assessed 03/24/25 05/08/25 14:38 Telehealth Telehealth Telehealth Platform: [facility] Location of provider rendering services: practice address Location of patient: address on file Patient Identification confirmed using: Name, : Yes Telehealth method: video Patient verbally consented to treatment: Yes Patient verbally consented to billing insurance company: Yes Patient informed of any privacy concerns related to visit: Yes Minutes spent on Phone/Video with Pt.: 8 Coding Level of Care Code Tele Est Pt Level 2 (67692) Complex visit Add On G2211 Diagnoses 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
[2025-05-08 16:05] VITALS: BP 118/67; BP 126/80
== END 2025-05-08 16:16 | disposition home or self-care (01) ==
LOC: HO.HMCFM 15:13
PROVIDERS: PCP Nurse Practitioner Family; Visit Provider Nurse Practitioner Family
DX: I10 Essential (primary) hypertension (principal); F41.9 Anxiety disorder, unspecified; F51.05 Insomnia due to other mental disorder